=== PATIENT | male | born 1945 | race Caucasian/White ===

== ENCOUNTER 2020-11-25 16:38 | Inpatient (IN) | payer MEDICARE, OTHER ==
[~2020-11-25] VITALS: Ht 167.6 cm; Wt 65.3 kg
--- NOTE | 2020-11-25 17:00 | NUR ---
The patient bibpa, from snf, sent by PMD d/t cough, congestion, and tachycardia. GT present. The patient obtunded. Respiration regular and unlabored. Attached to the monitor. Will continue to monitor the patient.
[2020-11-25 17:42] LABS: BASOPHILS # (AUTO) 0.1 /CMM (0.0-0.2); BASOPHILS % (AUTO) 0.5 % (0.0-2.0); EOSINOPHILS % (AUTO) 1.6 % (0.0-6.0); HEMATOCRIT 40 % (39-51); HEMOGLOBIN 13.1 g/dL (13.5-17.5); LYMPHOCYTES # (AUTO) 1.3 /CMM (0.8-4.8); LYMPHOCYTES % (AUTO) 11.8 % (20.0-44.0); MEAN CORPUSCULAR HGB CONC 33 g/dl (31.0-36.0); MEAN CORPUSCULAR VOLUME 83 fL (80-96); MONOCYTES # (AUTO) 0.8 /CMM (0.1-1.30); NEUTROPHILS # (AUTO) 8.8 /CMM (1.8-8.9); NEUTROPHILS % (AUTO) 79.1 % (43.0-81.0); PLATELET COUNT (AUTO) 250 /CMM (150-450); WHITE BLOOD COUNT (AUTO) 11.1 K/uL (4.3-11.0)
[2020-11-25 17:44] LABS: BILIRUBIN,URINE Negative (NEGATIVE); COLOR,URINE YELLOW (YELLOW); LEUKOCYTE ESTERASE ,URINE Negative (NEGATIVE); NITRITE, URINE Negative (NEGATIVE); PH,URINE 6.5 (5.0-8.0); PROTEIN,URINE >=300 mg/dl (NEGATIVE); UGLUCOSE Negative (NEGATIVE); UROBILINOGEN,URINE 0.2 EU/dL (0.2)
[2020-11-25 17:50] LABS: BACTERIA,URINE Rare /HPF (None Seen); SQUAMOUS EPITHELIAL CELL,UR Few /HPF (None Seen); WBC,URINE NONE SEEN /HPF (0-3)
[2020-11-25 17:52] LABS: CALCIUM, SERUM 9.9 mg/dL (8.5-10.1); CARBON DIOXIDE 30 mmol/L (21-32); CHLORIDE 98 mmol/L (98-107); CREATININE 0.8 mg/dL (0.6-1.3); GLUCOSE 159 mg/dL (74-106); SODIUM SERUM 134 mmol/L (136-145); UREA NITROGEN, BLOOD 20 mg/dL (7-18)
[2020-11-25 17:58] LABS: ALANINE AMINOTRANSFERASE 23 U/L (12-78); ALBUMIN 2.8 g/dL (3.4-5.0); ALKALINE PHOSPHATASE 90 U/L (46-116); ASPARTATE AMINOTRANSFERASE 29 U/L (15-37); BILIRUBIN,DIRECT 0.1 mg/dL (0.0-0.2); BILIRUBIN,TOTAL 0.5 mg/dL (0.2-1.0); TOTAL PROTEIN, SERUM 7.8 g/dL (6.4-8.2)
[2020-11-25] MEDS ORDERED: INSU100V27 SQ (18:05)
[2020-11-25] MEDS ORDERED: ACET-868 GT (18:05)
[2020-11-25] MEDS ORDERED: GABA-532 GT (18:05)
[2020-11-25] MEDS ORDERED: OMEG1600 GT (18:05)
[2020-11-25] MEDS ORDERED: MAGN400O6 GT (18:05)
[2020-11-25] MEDS ORDERED: IPRA3AMP23 IH ×2 (18:05)
[2020-11-25] MEDS ORDERED: ALLO100T GT (18:05)
[2020-11-25] MEDS ORDERED: MAGN400T26 GT (18:05)
[2020-11-25] MEDS ORDERED: FERR300L GT (18:05)
[2020-11-25] MEDS ORDERED: ASCO-352 GT (18:05)
[2020-11-25] MEDS ORDERED: POTA20PA3 GT (18:05)
[2020-11-25] MEDS ORDERED: ONDA4TAB5 GT (18:05)
[2020-11-25] MEDS ORDERED: NUT.237L30 GT (18:05)
[2020-11-25] MEDS ORDERED: ESCI10TA GT (18:05)
[2020-11-25] MEDS ORDERED: DOCU50LI GT (18:05)
[2020-11-25] MEDS ORDERED: LANS30CA54 GT (18:05)
[2020-11-25] MEDS ORDERED: DONE10TA11 GT (18:05)
--- NOTE | 2020-11-25 18:27 | NUR ---
DR. METZ SPEAKING WITH DR. DUDLEY
[2020-11-25 21:00] VITALS: BP 151/91
--- NOTE | 2020-11-25 21:03 | NUR ---
REPORT GIVEN TO RODRIGUEZ CELESTIN FOR PANTERA. PT TRANSFERED PER ACLS PROTOCOL.
--- NOTE | 2020-11-25 21:05 | NUR ---
VP [employer] NOTES, RECEIVED PATIENT FORM ER DEPARTMENT VIA AISHWARYA ACCOMPANIED BY 2 NURSE, UNDER MEDICAL SERVICES OF DR ISAÍAS POSEY, WILL CONTAC MD FOR ADMITTING ORDER, PATIENT NONVERBAL, UNABLE TO FOLLOW COMMANDS, BREATHING EVEN AND UNLABORED AT 3LPM VIA NC WITH O2 SAT LEVEL 99%, NO S/S OF SOB/ACUTE DISTRESS, CONGESTED, ATTACHED TO TELE MONITOR AND NOTED SINUS TACHY, AFEBRILE, GT IN PLACED, F/C IN PLACED DRAINING LEAR YELLOW URINE BY GRAVITY, MIDLINE IN BRANT PATENT AND INTACT, BED BATH GIVEN UPON ADMISSION, NO OPEN WOUNDS NOTED, WILL CONTINUE TO MONITOR AND F/U WITH MD FOR ORDERS, S/R OF BED UPX2, CALL LIGHT W/I REACH.
--- NOTE | 2020-11-25 21:05 | NUR ---
STAFF DEVELOPMENT COORDINATOR RN NOTES, RECEIVED PATIENT FORM ER DEPARTMENT VIA AISHWARYA ACCOMPANIED BY 2 NURSE, UNDER MEDICAL SERVICES OF DR SABINO POSEY, JIMMY MOCTEZUMA MD FOR ADMITTING ORDER, PATIENT ONVERBAL, UNABLE TO FOLLOW COMANDS, BREWATHIGN EVEN AND UNLABOTED AT 3LPM VIA NC WITH O2 SAT LEVEL 99%, NO S/S OF SOB/ACUSTE DISTRESS, CONGESTED, ATTACHED TO TELE MONOI
--- NOTE | 2020-11-25 21:25 | NUR ---
2124 LEFT MESSAGE TO FIELD OPERATIONS FARM MANAGER VOICEMAIL OF DR. TATY METZ REGARDING PATIENT'S ADMISSION, AWAITING CALL BACK.
--- NOTE | 2020-11-25 22:05 | NUR ---
[address] METZ AGAIN FOR ORDERS, CALL DIRECTED TO DR. MADISON METZ CELL PHONE, SPOKE WITH HIM REGARDING ADMISSION ORDERS. ORDERS OBTAINED, NOTED AND CARRIED OUT.
--- NOTE | 2020-11-25 22:10 | NUR ---
Patient resides at [facility] [phone] on 7days bed hold. He is wheelchair dependent,requires mod-max assist with adl's. Current dc plan is to return to SNF. Addendum: 11/25/20 at 2210 by MELLISSA MAHARAJ RN Amended: Links added.
[2020-11-25] MEDS ORDERED: ENOXAPARIN SODIUM 40 MG/0.4 ML DISP.SYRIN SQ SCH (22:30)
[2020-11-25] MEDS ORDERED: INSULIN REGULAR, HUMAN 100 UNIT/ML 3 ML VIAL SQ PRN (22:30)
[2020-11-25] MEDS ORDERED: ONDANSETRON 4 MG TAB.RAPDIS GT PRN (22:30)
[2020-11-25] MEDS ORDERED: MAGNESIUM HYDROXIDE 30 ML UDC PO PRN (22:30)
[2020-11-25] MEDS ORDERED: DEXTROSE 50%-WATER 50 ML DISP.SYRIN IV PRN (22:30)
[2020-11-25] MEDS ORDERED: ACETAMINOPHEN 650 MG/20.3 ML UDC GT PRN (22:30)
[2020-11-25] MEDS ORDERED: INSULIN LISPRO/ASPART 100 UNIT/ML CARTRIDGE SQ ONE ×2 (22:30→23:00)
[2020-11-25] MEDS ORDERED: GLUCERNA 1.2 1,000 ML BOTTLE NG PRN ×2 (22:30)
[2020-11-25] MEDS: FUROSEMIDE 40 MG/4 ML VIAL IV SCH (23:00)
[2020-11-25] MEDS ORDERED: IPRATROPIUM/ALBUTEROL INHALER IH PRN (23:00)
--- NOTE | 2020-11-25 23:00 | NUR ---
RN NOTES, PER DR SHELLEY METZ TO START LOVENOX SQ TOMORROW.
[2020-11-26] VITALS: BP 142/94
[2020-11-26] MEDS ORDERED: BLOOD SUGAR DIAGNOSTIC 1 EACH STRIP IN SCH
[2020-11-26] MEDS ORDERED: DEXTROSE 50%-WATER 50 ML DISP.SYRIN IV PRN (01:00)
[2020-11-26] MEDS ORDERED: INSULIN LISPRO/ASPART 100 UNIT/ML CARTRIDGE SQ ONE (01:18)
[2020-11-26] MEDS: INSULIN ASPART/LISPRO 100 UNIT/ML CARTRIDGE SQ PRN ×5 (01:22→23:45)
[2020-11-26 04:00] VITALS: BP 117/96
[2020-11-26] MEDS: BLOOD SUGAR DIAGNOSTIC 1 EACH STRIP IN SCH ×4 (06:38→23:29)
--- NOTE | 2020-11-26 07:33 | NUR ---
RN NOTES, NO SIGNIFICANT CHANGE IN CONDITION, ENDORSED TO DAY SHIFT NURSE FOR CONTINUATION OF CARE.
[2020-11-26] MEDS ORDERED: IPRATROPIUM/ALBUTEROL INHALER IH SCH (07:35)
--- NOTE | 2020-11-26 07:45 | NUR ---
RN NOTE PATIENT IS IN BED WITH HOB AT SEMI FOWLERS POSITION. PATIENT IS ON 2L NC WITH NO SIGNS OF LABORED BREATHING. PATIENT IS OBTUNDED. GTUBE IS IN PLACE. DURHAM CATHETER IS IN PLACE. BRANT 18 IS PATENT AND INTACT. BED IS LOCKED IN THE LOWEST POSITION, 3 GUARD RAILS RAISED, CALL PARK WITHIN REACH, AND ALL HOSPITAL SAFETY PRECAUTIONS ARE BEING FOLLOWED. WILL CONTINUE TO MONITOR THROUGHOUT SHIFT.
[2020-11-26] MEDS ORDERED: MAGNESIUM HYDROXIDE 30 ML UDC GT PRN (08:00)
[2020-11-26] MEDS ORDERED: DOCUSATE SODIUM LIQ 100 MG/10 ML UDC GT PRN (08:00)
[2020-11-26] MEDS ORDERED: MISCELLANEOUS MED 1 EA EA XX ONE ×2 (08:00)
[2020-11-26] MEDS ORDERED: ONDANSETRON 4 MG TAB.RAPDIS GT PRN (08:00)
[2020-11-26] MEDS ORDERED: INSULIN ASPART/LISPRO 100 UNIT/ML CARTRIDGE SQ PRN (08:00)
[2020-11-26] MEDS ORDERED: GLUCERNA 1.2 1,000 ML BOTTLE NG PRN (08:00)
[2020-11-26] MEDS ORDERED: ACETAMINOPHEN 325 MG TABLET PO PRN (08:00)
[2020-11-26] MEDS ORDERED: ESCITALOPRAM OXALATE (10 MG) 10 MG TABLET GT SCH (09:00)
[2020-11-26] MEDS ORDERED: ENOXAPARIN SODIUM 40 MG/0.4 ML DISP.SYRIN SQ SCH (09:00)
[2020-11-26] MEDS ORDERED: POTASSIUM CHLORIDE 20 MEQ TAB.PRT.SR PO SCH (09:00)
[2020-11-26] MEDS ORDERED: ASCORBIC ACID 500 MG TABLET GT SCH (09:00)
[2020-11-26] MEDS ORDERED: MAGNESIUM OXIDE 400 MG TABLET GT SCH (09:00)
[2020-11-26] MEDS ORDERED: POTASSIUM CHLORIDE 20 MEQ POWDER PACKET GT SCH (09:00)
[2020-11-26] MEDS ORDERED: GABAPENTIN 300 MG CAPSULE GT SCH (09:00)
[2020-11-26] MEDS ORDERED: ALLOPURINOL 100 MG TABLET GT SCH (09:00)
[2020-11-26] MEDS ORDERED: FERROUS SULFATE UDC 300 MG/5 ML UDC GT SCH (09:00)
[2020-11-26] MEDS: ALLOPURINOL 100 MG TABLET GT SCH (09:13)
[2020-11-26] MEDS: FERROUS SULFATE UDC 300 MG/5 ML UDC GT SCH (09:13)
[2020-11-26] MEDS: DOCUSATE SODIUM 100 MG CAPSULE PO SCH (09:13)
[2020-11-26] MEDS: MAGNESIUM OXIDE 400 MG TABLET GT SCH (09:13)
[2020-11-26] MEDS: PANTOPRAZOLE 40 MG TABLET.DR PO SCH (09:13)
[2020-11-26] MEDS: ASCORBIC ACID 500 MG TABLET GT SCH (09:13)
[2020-11-26] MEDS: FUROSEMIDE 40 MG/4 ML VIAL IV SCH (09:14)
[2020-11-26] MEDS: ESCITALOPRAM OXALATE (10 MG) 10 MG TABLET GT SCH (09:14)
[2020-11-26] MEDS: CARVEDILOL 3.125 MG TABLET PO SCH ×2 (11:59→16:29)
[2020-11-26] MEDS: methylPREDNISolone SOD SUCC 125 MG/2ML VIAL IV SCH ×2 (12:02→22:14)
[2020-11-26] MEDS: IPRATROPIUM NEB FS 0.5 MG/2.5 ML AMPUL.NEB NEB SCH ×3 (15:30→23:30)
[2020-11-26] MEDS: ALBUTEROL HALF STRENGTH 1.25 MG/3 ML VIAL.NEB NEB SCH ×3 (15:30→23:30)
--- NOTE | 2020-11-26 15:41 | NUR ---
RT HHN tx not given at this time due to pending COVID results and risk for aerosolization. No SOB or respiratory distress noted at this time.
[2020-11-26 16:04] LABS: ABG BASE EXCESS 5.9 mmol/L; ABG OXYGEN SATURATION 96.8 % (92.0-98.5); ABG PCO2 46.7 mmHg (35.0-45.0); ABG PH 7.441 (7.350-7.450); ABG PO2 89.7 mmHg (75.0-100.0); AaDO2 112.8 mmHg; MetHb 0.3 % (0.0-1.5); O2Hb 95.5 % (94.0-97.0); SITE, ABG Right Radial
[2020-11-26] MEDS: POTASSIUM CHLORIDE 20 MEQ POWDER PACKET GT SCH (16:28)
--- NOTE | 2020-11-26 16:42 | NUR ---
RN NOTE CONSENT OBTAINED FOR THORACENTESIS OF RIGHT LUNG.
[2020-11-26] MEDS: INSULIN NPH, HUMAN ISOPHANE 100 UNIT/ML VIAL SQ SCH (17:38)
--- NOTE | 2020-11-26 18:48 | NUR ---
RN NOTE PATIENT IS IN BED WITH HOB AT SEMI FOWLERS POSITION. PATIENT IS ON 2L NC WITH NO SIGNS OF LABORED BREATHING. PATIENT IS OBTUNDED. GTUBE IS IN PLACE. DURHAM CATHETER IS IN PLACE. BRANT 18 IS PATENT AND INTACT. BED IS LOCKED IN THE LOWEST POSITION, 3 GUARD RAILS RAISED, CALL PARK WITHIN REACH, AND ALL HOSPITAL SAFETY PRECAUTIONS ARE BEING FOLLOWED. ALL DUE MEDS GIVEN AND PATIENT REMAINED STABLE THROUGHOUT SHIFT. WILL ENDORSE TO REGISTERED TRAVEL NURSE RN.
--- NOTE | 2020-11-26 19:35 | NUR ---
TELE/RN OPENING NOTE RECEIVED PATIENT RESTING IN BED. NON-VERBAL AT BASELINE. NO S/SX OF PAIN NOTED AT THIS TIME. CONTINUES ON 2L O2 VIA NC WITH NO S/SX OF RESPIRATORY DISTRESS NOTED. TELE MONITOR READING ST 106. IV ACCESS TO RIGHT UPPER ARM ##18G INTACT, PATENT AND SALINE FLUSHED. CONTINUES ON GLUCERNA 1.2 @ 70ML/HR. NO S/SX OF RESIDUAL NOTED AT THIS TIME. DURHAM CATHETER IN PLACE DRAINING CLEAR, YELLOW URINE. FREQUENT SAFETY CHECKS MADE. ASPIRATION, FALL AND SAFETY PRECAUTIONS MAINTAINED. WILL CONTINUE TO MONITOR.
--- NOTE | 2020-11-26 20:19 | NUR ---
RT NOTE TX NOT GIVEN DUE TO PENDING COVID RESULTS. NO DISTRESS NOTED AT THIS TIME. PT RECEIVED ON 4LPM NASAL CANNULA. RN AWARE. Addendum: 11/26/20 at 2020 by ABIGAIL COSTA RT Amended: Links added.
[2020-11-26] MEDS ORDERED: DONEPEZIL 5 MG TABLET GT SCH (22:00)
[2020-11-26] MEDS: GABAPENTIN 100 MG CAPSULE GT SCH (22:14)
[2020-11-26] MEDS: DONEPEZIL 5 MG TABLET GT SCH (22:14)
--- NOTE | 2020-11-26 23:49 | NUR ---
TELE/RN NOTE PATIENTS BLOOD GLUCOSE LEVEL IS 185. ADMINISTERED 3U HUMALOG PER INSULIN SS ORDER. CONTINUES ON GLUCERNA 1.2. WILL CONTINUE TO MONITOR.
[2020-11-27] MEDS: ALBUTEROL HALF STRENGTH 1.25 MG/3 ML VIAL.NEB NEB SCH ×6 (03:30→23:03)
[2020-11-27] MEDS: IPRATROPIUM NEB FS 0.5 MG/2.5 ML AMPUL.NEB NEB SCH ×6 (03:30→23:01)
[2020-11-27] MEDS: methylPREDNISolone SOD SUCC 125 MG/2ML VIAL IV SCH (04:50)
[2020-11-27] MEDS: GLUCERNA 1.2 1,000 ML BOTTLE NG PRN (05:59)
[2020-11-27] MEDS: BLOOD SUGAR DIAGNOSTIC 1 EACH STRIP IN SCH ×3 (05:59→17:01)
[2020-11-27] MEDS: INSULIN ASPART/LISPRO 100 UNIT/ML CARTRIDGE SQ PRN ×3 (06:30→16:48)
--- NOTE | 2020-11-27 06:30 | NUR ---
TELE/RN CLOSING NOTE PATIENT CURRENTLY RESTING IN BED. NON-VERBAL AT BASELINE. NO S/SX OF PAIN NOTED AT THIS TIME. CONTINUES ON 2L O2 VIA NC WITH NO S/SX OF RESPIRATORY DISTRESS NOTED. TELE MONITOR READING ST 106. IV ACCESS TO RIGHT UPPER ARM #18G INTACT, PATENT AND SALINE FLUSHED. CONTINUES ON GLUCERNA 1.2 @ 70ML/HR. NO S/SX OF RESIDUAL NOTED AT THIS TIME. DURHAM CATHETER IN PLACE DRAINING CLEAR, YELLOW URINE. BLOOD GLUCOSE THIS AM IS 197 - ADMINISTERED 3U HUMALOG INSULIN SS PER MD ORDER. FREQUENT SAFETY CHECKS MADE. ASPIRATION, FALL AND SAFETY PRECAUTIONS MAINTAINED. WILL ENDORSE PLAN OF CARE TO ONCOMING SHIFT.
[2020-11-27 07:13] LABS: BASOPHILS % (AUTO) 0.2 % (0.0-2.0); EOSINOPHILS % (AUTO) 0.1 % (0.0-6.0); HEMATOCRIT 40 % (39-51); LYMPHOCYTES # (AUTO) 1.2 /CMM (0.8-4.8); LYMPHOCYTES % (AUTO) 11.3 % (20.0-44.0); MEAN CORPUSCULAR HGB CONC 33 g/dl (31.0-36.0); MEAN CORPUSCULAR VOLUME 85 fL (80-96); MONOCYTES # (AUTO) 0.2 /CMM (0.1-1.30); MONOCYTES % (AUTO) 2.3 % (2.0-12.0); NEUTROPHILS # (AUTO) 8.9 /CMM (1.8-8.9); NEUTROPHILS % (AUTO) 86.1 % (43.0-81.0); PLATELET COUNT (AUTO) 285 /CMM (150-450); RED BLOOD CELL COUNT(AUTO) 4.71 MIL/uL (4.5-6.0); WHITE BLOOD COUNT (AUTO) 10.4 K/uL (4.3-11.0)
--- NOTE | 2020-11-27 07:30 | NUR ---
RN NOTE PATIENT IS IN BED WITH HOB AT SEMI FOWLERS POSITION. PATIENT IS ON 4L NC WITH NO SIGNS OF LABORED BREATHING. PATIENT IS OBTUNDED. DURHAM CATHETER IS IN PLACE. GTUBE IN PLACE. BRANT 18G IS PATENT AND INTACT. BED IS LOCKED IN THE LOWEST POSITION, 3 GUARD RAILS RAISED, CALL PARK WITHIN REACH, AND ALL HOSPITAL SAFETY PRECAUTIONS ARE BEING FOLLOWED. WILL CONTINUE TO MONITOR THROUGHOUT SHIFT.
[2020-11-27 07:57] LABS: CALCIUM, SERUM 10.1 mg/dL (8.5-10.1); POTASSIUM 5.2 mmol/L (3.5-5.1)
[2020-11-27] MEDS: FUROSEMIDE 40 MG/4 ML VIAL IV SCH (08:19)
[2020-11-27] MEDS: POTASSIUM CHLORIDE 20 MEQ POWDER PACKET GT SCH (08:19)
[2020-11-27] MEDS: ASCORBIC ACID 500 MG TABLET GT SCH (08:20)
[2020-11-27] MEDS: CARVEDILOL 3.125 MG TABLET PO SCH ×2 (08:20→16:46)
[2020-11-27] MEDS: FERROUS SULFATE UDC 300 MG/5 ML UDC GT SCH (08:21)
[2020-11-27] MEDS: ESCITALOPRAM OXALATE (10 MG) 10 MG TABLET GT SCH (08:21)
[2020-11-27] MEDS: DOCUSATE SODIUM 100 MG CAPSULE PO SCH (08:21)
[2020-11-27] MEDS: MAGNESIUM OXIDE 400 MG TABLET GT SCH (08:21)
[2020-11-27] MEDS: PANTOPRAZOLE 40 MG TABLET.DR PO SCH (08:21)
[2020-11-27] MEDS: ALLOPURINOL 100 MG TABLET GT SCH (08:21)
[2020-11-27] MEDS: INSULIN NPH, HUMAN ISOPHANE 100 UNIT/ML VIAL SQ SCH ×2 (08:44→16:47)
[2020-11-27 12:00] VITALS: BP 117/78
--- NOTE | 2020-11-27 18:57 | NUR ---
RN NOTE PATIENT IS IN BED WITH HOB AT SEMI FOWLERS POSITION. PATIENT IS ON 3L NC WITH NO SIGNS OF LABORED BREATHING. PATIENT IS OBTUNDED. DURHAM CATHETER IS IN PLACE. GTUBE IN PLACE. BRANT 18G IS PATENT AND INTACT. BED IS LOCKED IN THE LOWEST POSITION, 3 GUARD RAILS RAISED, CALL PARK WITHIN REACH, AND ALL HOSPITAL SAFETY PRECAUTIONS ARE BEING FOLLOWED. ALL DUE MEDS GIVEN AND PATIENT REMAINED STABLE THROUGHOUT SHIFT. WILL ENDORSE TO PM TECHNICIAN RN.
--- NOTE | 2020-11-27 19:00 | NUR ---
RN NOTE RECEIVED PATIENT IN BED, LETHARGIC, IN NO S/SX OF ACUTE DISTRESS AT THIS TIME, BREATHING IS EVEN AND UNLABORED, PATIENT IS ON 3 L OF OXYGEN VIA NC; TOLERATING WELL, SATURATION AT 100%, SR ON THE MONITOR, HR IS 88. NOTED IV SITE AT BRANT 18G, PATENT AND FLUSHING WELL, NO S/S OF INFECTION OR INFILTRATION. DURHAM CATHETER CONNECTED TO URINE BAG IN PLACE, DRAINING TO A CLEAR YELLOW OUTPUT. SAFETY MEASURES HAVE BEEN PROVIDED AND IMPLEMENTED. PATIENT BED ALARM IS ON. HEAD OF BED ELEVATED. BED IS LOCKED, IN LOWEST POSITION AND SIDE RAILS UP. CALL LIGHT WITHIN REACH OF THE PATIENT. WILL CONTINUE TO MONITOR AND REASSESS FOR ANY CHANGES.
[2020-11-27 20:00] VITALS: BP 110/69
[2020-11-27] MEDS: GABAPENTIN 100 MG CAPSULE GT SCH (21:12)
[2020-11-27] MEDS: methylPREDNISolone SOD SUCC 40 MG/ML VIAL IV SCH (21:12)
[2020-11-27] MEDS: DONEPEZIL 5 MG TABLET GT SCH (21:12)
[2020-11-28] VITALS: BP 116/67
[2020-11-28] MEDS: BLOOD SUGAR DIAGNOSTIC 1 EACH STRIP IN SCH ×5 (00:02→23:49)
[2020-11-28] MEDS: INSULIN ASPART/LISPRO 100 UNIT/ML CARTRIDGE SQ PRN ×4 (00:06→23:50)
[2020-11-28 04:00] VITALS: BP 113/70
[2020-11-28] MEDS: ALBUTEROL HALF STRENGTH 1.25 MG/3 ML VIAL.NEB NEB SCH ×6 (04:31→23:23)
[2020-11-28] MEDS: IPRATROPIUM NEB FS 0.5 MG/2.5 ML AMPUL.NEB NEB SCH ×6 (04:31→23:23)
[2020-11-28 06:49] LABS: BASOPHILS % (AUTO) 0.2 % (0.0-2.0); HEMATOCRIT 39 % (39-51); HEMOGLOBIN 12.3 g/dL (13.5-17.5); LYMPHOCYTES # (AUTO) 0.9 /CMM (0.8-4.8); MEAN CORPUSCULAR HGB CONC 32 g/dl (31.0-36.0); MEAN CORPUSCULAR VOLUME 86 fL (80-96); MONOCYTES # (AUTO) 0.3 /CMM (0.1-1.30); MONOCYTES % (AUTO) 2.5 % (2.0-12.0); NEUTROPHILS # (AUTO) 11.3 /CMM (1.8-8.9); NEUTROPHILS % (AUTO) 90.3 % (43.0-81.0); PLATELET COUNT (AUTO) 301 /CMM (150-450); RED BLOOD CELL COUNT(AUTO) 4.51 MIL/uL (4.5-6.0); WHITE BLOOD COUNT (AUTO) 12.5 K/uL (4.3-11.0)
[2020-11-28] MEDS: GLUCERNA 1.2 1,000 ML BOTTLE NG PRN (07:34)
[2020-11-28 07:36] LABS: CALCIUM, SERUM 9.7 mg/dL (8.5-10.1); POTASSIUM 4.9 mmol/L (3.5-5.1)
--- NOTE | 2020-11-28 07:43 | NUR ---
RN OPENING NOTE RECEIVED PATIENT IN BED, AWAKE AND ABLE TO RESPONDS PHYSICAL STIMULI. SKIN IS WARM TO TOUCH KEEP CLEAN/DRY, PATIENT N . RESPIRATORY EVEN AND UNLABORED WITH OXYGEN AT 2LPM VIA NC, NO DISTRESS OBSERVED. KEPT ELEVATED HOB FOR ENSURE AIRWAY AND ASPIRATION PRECAUTION, ALSO LOWEST BED POSITION FOE SAFETY. CALL LIGHT WITHIN REACH, WILL CONTINUE TO MONITOR. Addendum: 11/28/20 at 0746 by GREGORIA COLON RN ERROR
--- NOTE | 2020-11-28 07:46 | NUR ---
RN OPENING NOTE RECEIVED PATIENT IN BED, AWAKE AND ABLE TO RESPONDS PHYSICAL STIMULI. SKIN IS WARM TO TOUCH KEEP CLEAN/DRY, INTACT IV SITE, PATIENT IN GTUBE AND RUNNING GLUCERNA 1.2 AT 70 ML. RESPIRATORY EVEN AND UNLABORED WITH OXYGEN AT 2LPM VIA NC, NO DISTRESS OBSERVED. KEPT ELEVATED HOB FOR ENSURE AIRWAY AND ASPIRATION PRECAUTION, ALSO LOWEST BED POSITION FOE SAFETY. CALL LIGHT WITHIN REACH, WILL CONTINUE TO MONITOR.
--- NOTE | 2020-11-28 07:55 | NUR ---
received on 2 lpm o2 flow with 96% spo2. no increase WOB noted. Addendum: 11/28/20 at 0755 by ZEUS YADAV RT Amended: Links added.
[2020-11-28 08:00] VITALS: BP 107/74
[2020-11-28] MEDS: CARVEDILOL 3.125 MG TABLET PO SCH ×2 (09:00→16:49)
[2020-11-28] MEDS: ALLOPURINOL 100 MG TABLET GT SCH (09:07)
[2020-11-28] MEDS: DOCUSATE SODIUM 100 MG CAPSULE PO SCH (09:07)
[2020-11-28] MEDS: PANTOPRAZOLE 40 MG TABLET.DR PO SCH (09:07)
[2020-11-28] MEDS: ASCORBIC ACID 500 MG TABLET GT SCH (09:07)
[2020-11-28] MEDS: MAGNESIUM OXIDE 400 MG TABLET GT SCH (09:07)
[2020-11-28] MEDS: ESCITALOPRAM OXALATE (10 MG) 10 MG TABLET GT SCH (09:07)
[2020-11-28] MEDS: FERROUS SULFATE UDC 300 MG/5 ML UDC GT SCH (09:07)
[2020-11-28] MEDS: methylPREDNISolone SOD SUCC 40 MG/ML VIAL IV SCH ×2 (09:07→21:33)
[2020-11-28] MEDS: INSULIN NPH, HUMAN ISOPHANE 100 UNIT/ML VIAL SQ SCH ×2 (09:11→16:48)
--- NOTE | 2020-11-28 09:19 | NUR ---
WOUND CARE CONSULT: PT PRESENTS WITH SCARRING TO BILATERAL FEET AND TO SACRAL AREA, PRESENT ON ADMISSION. RECOMMENDATIONS MADE FOR SKIN PROTECTION. DISCUSSED WITH NURSING STAFF. PT IS ON FAY ISOFLEX LOW AIRLOSS BED. MD IN AGREEMENT WITH PLAN OF CARE.
[2020-11-28] MEDS ORDERED: Z GUARD REMEDY 2 OZ OINT TP PRN (09:30)
[2020-11-28] MEDS: Z GUARD REMEDY 2 OZ OINT TP SCH (10:59)
[2020-11-28 12:00] VITALS: BP 128/76
[2020-11-28] MEDS: ENOXAPARIN SODIUM 40 MG/0.4 ML DISP.SYRIN SQ SCH (14:14)
[2020-11-28 16:00] VITALS: BP 106/64
--- NOTE | 2020-11-28 16:49 | NUR ---
BP-106/64, WILL HOLD COREG.
--- NOTE | 2020-11-28 18:24 | NUR ---
RN CLOSING NOTE PATIENT RESTING IN BED, REMAINS A O X4, DOES NO APPEARS DISTRESS OR DISCOMFORT. SKIN IS WARM TO TOUCH, KEEP CLEAN/DRY. RESPIRATORY EVEN AND UNLABORED IN ROOM AIR, O2SAT 99%. KEPT ELEVATED HOB FOR ENSURE AIRWAY AND ASPIRATION PRECAUTION, ALSO LOWEST BED POSITION FOR SAFETY. CALL LIGHT WITHIN REACH, WILL ENDORSE MID LEVEL BUSINESS ANALYST.
--- NOTE | 2020-11-28 19:00 | NUR ---
RN NOTE RECEIVED PATIENT IN BED, OPENS EYES, DOES NOT OBEY COMMANDS, IN NO S/SX OF ACUTE DISTRESS AT THIS TIME, BREATHING IS EVEN AND UNLABORED, PATIENT IS ON 2 L OF OXYGEN VIA NC; TOLERATING WELL, SATURATION AT 98%, ST ON THE MONITOR, HR IS 102. NOTED IV SITE AT BRANT 18G, PATENT AND FLUSHING WELL, NO S/S OF INFECTION OR INFILTRATION. DURHAM CATHETER CONNECTED TO URINE BAG IN PLACE, DRAINING TO A CLEAR YELLOW OUTPUT. SAFETY MEASURES HAVE BEEN PROVIDED AND IMPLEMENTED. PATIENT BED ALARM IS ON. HEAD OF BED ELEVATED. BED IS LOCKED, IN LOWEST POSITION AND SIDE RAILS UP. CALL LIGHT WITHIN REACH OF THE PATIENT. WILL CONTINUE TO MONITOR AND REASSESS FOR ANY CHANGES.
[2020-11-28 20:00] VITALS: BP 119/62
[2020-11-28] MEDS: GABAPENTIN 100 MG CAPSULE GT SCH (21:33)
[2020-11-28] MEDS: DONEPEZIL 5 MG TABLET GT SCH (21:33)
[2020-11-29] VITALS: BP 107/69
[2020-11-29] MEDS: ALBUTEROL HALF STRENGTH 1.25 MG/3 ML VIAL.NEB NEB SCH ×4 (03:47→15:25)
[2020-11-29] MEDS: IPRATROPIUM NEB FS 0.5 MG/2.5 ML AMPUL.NEB NEB SCH ×4 (03:47→15:25)
[2020-11-29 04:00] VITALS: BP 129/83
[2020-11-29] MEDS: BLOOD SUGAR DIAGNOSTIC 1 EACH STRIP IN SCH ×2 (05:53→12:36)
[2020-11-29 05:58] LABS: HEMATOCRIT 38 % (39-51); HEMOGLOBIN 12.1 g/dL (13.5-17.5); LYMPHOCYTES # (AUTO) 0.9 /CMM (0.8-4.8); LYMPHOCYTES % (AUTO) 10.3 % (20.0-44.0); MEAN CORPUSCULAR HGB CONC 32 g/dl (31.0-36.0); MEAN CORPUSCULAR VOLUME 86 fL (80-96); MONOCYTES # (AUTO) 0.3 /CMM (0.1-1.30); NEUTROPHILS # (AUTO) 7.4 /CMM (1.8-8.9); NEUTROPHILS % (AUTO) 85.7 % (43.0-81.0); PLATELET COUNT (AUTO) 278 /CMM (150-450); RED BLOOD CELL COUNT(AUTO) 4.34 MIL/uL (4.5-6.0); WHITE BLOOD COUNT (AUTO) 8.7 K/uL (4.3-11.0)
[2020-11-29] MEDS: INSULIN ASPART/LISPRO 100 UNIT/ML CARTRIDGE SQ PRN ×2 (06:00→12:56)
[2020-11-29 06:31] LABS: CALCIUM, SERUM 9.5 mg/dL (8.5-10.1); CREATININE 0.9 mg/dL (0.6-1.3); POTASSIUM 4.3 mmol/L (3.5-5.1)
--- NOTE | 2020-11-29 07:52 | NUR ---
RN OPENING NOTES Patient is responsive to verbal and physical stimuli. Patient is on 2 liters 02 via n/c with 02 sat of 98%. HOB kept elevated. G tube feeding running well, right upper arm midline noted. Bed is in lowest and locked position. Call light with in reach. Will continue to monitor.
[2020-11-29 08:00] VITALS: BP 127/76
[2020-11-29] MEDS: Z GUARD REMEDY 2 OZ OINT TP SCH (09:00)
[2020-11-29] MEDS: MAGNESIUM OXIDE 400 MG TABLET GT SCH (09:11)
[2020-11-29] MEDS: methylPREDNISolone SOD SUCC 40 MG/ML VIAL IV SCH (09:11)
[2020-11-29] MEDS: ALLOPURINOL 100 MG TABLET GT SCH (09:12)
[2020-11-29] MEDS: PANTOPRAZOLE 40 MG TABLET.DR PO SCH (09:12)
[2020-11-29] MEDS: FERROUS SULFATE UDC 300 MG/5 ML UDC GT SCH (09:12)
[2020-11-29] MEDS: ASCORBIC ACID 500 MG TABLET GT SCH (09:12)
[2020-11-29] MEDS: ESCITALOPRAM OXALATE (10 MG) 10 MG TABLET GT SCH (09:13)
[2020-11-29] MEDS: CARVEDILOL 3.125 MG TABLET PO SCH (09:13)
[2020-11-29] MEDS: DOCUSATE SODIUM 100 MG CAPSULE PO SCH (09:13)
[2020-11-29] MEDS: ENOXAPARIN SODIUM 40 MG/0.4 ML DISP.SYRIN SQ SCH (09:21)
[2020-11-29] MEDS: INSULIN NPH, HUMAN ISOPHANE 100 UNIT/ML VIAL SQ SCH (09:34)
[2020-11-29 12:00] VITALS: BP 127/76
[2020-11-29] MEDS: GLUCERNA 1.2 1,000 ML BOTTLE NG PRN (12:06)
--- NOTE | 2020-11-29 15:59 | NUR ---
DISCHARGE NOTES Patient is alert and responsive to verbal and physical stimuli., On 02 2 liters via n/c with 02 sat of 100%. No c/o pain or discomfort.Report given to KENDELL CELESTIN. Per RN to leave midline in the patient and the facility staff will remove it. Patient noted with quiñones cath intact and hanging to gravity with clear yellow urine. G-tube intact and placement noted.
[2020-11-30] MEDS ORDERED: methylPREDNISolone SOD SUCC 40 MG/ML VIAL IV SCH (09:00)
== END 2020-11-29 16:01 | DRG 291 ==
LOC: ER 16:49 → TELE1 19:55
PROVIDERS: ADMIT Internal Medicine; ATTEND Internal Medicine
DX: I11.0 Hypertensive heart disease with heart failure (principal); J15.9 Unspecified bacterial pneumonia; R53.2 Functional quadriplegia; I50.31 Acute diastolic (congestive) heart failure; J96.00 Acute respiratory failure, unspecified whether with hypoxia or hypercapnia; J90 Pleural effusion, not elsewhere classified; N39.0 Urinary tract infection, site not specified; G93.40 Encephalopathy, unspecified; Z16.24 Resistance to multiple antibiotics; E11.9 Type 2 diabetes mellitus without complications; E78.5 Hyperlipidemia, unspecified; F03.90 Unspecified dementia, unspecified severity, without behavioral disturbance, psychotic disturbance, mood disturbance, and anxiety; Z86.16 Personal history of COVID-19; Z86.73 Personal history of transient ischemic attack (TIA), and cerebral infarction without residual deficits; Z86.718 Personal history of other venous thrombosis and embolism; R53.1 Weakness; F01.50 Vascular dementia, unspecified severity, without behavioral disturbance, psychotic disturbance, mood disturbance, and anxiety; E11.65 Type 2 diabetes mellitus with hyperglycemia; I48.91 Unspecified atrial fibrillation; R13.10 Dysphagia, unspecified; N40.0 Benign prostatic hyperplasia without lower urinary tract symptoms; D64.9 Anemia, unspecified; F32.9 Major depressive disorder, single episode, unspecified; J45.909 Unspecified asthma, uncomplicated; Z93.1 Gastrostomy status; Z92.21 Personal history of antineoplastic chemotherapy; Z86.711 Personal history of pulmonary embolism; Z79.899 Other long term (current) drug therapy; Z87.01 Personal history of pneumonia (recurrent); Z74.01 Bed confinement status; Z92.3 Personal history of irradiation; Z88.2 Allergy status to sulfonamides; Z20.822 Contact with and (suspected) exposure to COVID-19; T38.0X5A Adverse effect of glucocorticoids and synthetic analogues, initial encounter; T50.2X5A Adverse effect of carbonic-anhydrase inhibitors, benzothiadiazides and other diuretics, initial encounter; Y92.9 Unspecified place or not applicable; Z85.118 Personal history of other malignant neoplasm of bronchus and lung
CPT/HCPCS: 36415; 36600; 71045-TC; 80048-TC; 80076-TC; 81001; 82803-TC; 82962-TC; 83605-TC; 83880; 84484-TC; 85025-TC; 85730-TC; 87040-TC; 87070-TC; 87075-TC; 87081-TC; 87086-TC; 87102-TC; 88108-TC; 88305-TC; 89051-TC; 94799-TC; G0378; J1650; J1815; J1940; J2920; J2930; U0003

== ENCOUNTER 2021-04-26 14:57 | Inpatient (IN) | payer MEDICARE, OTHER ==
[~2021-04-26] VITALS: Ht 177.8 cm; Wt 71.3 kg
[~2021-04-26 14:57] MED LIST: ACET-868 GT; ALLO100T GT; ASCO-352 GT; DOCU50LI GT; DONE10TA11 GT; ESCI10TA GT; FERR300L GT; GABA-532 GT; INSU100V27 SQ; IPRA3AMP23 IH; MAGN400O6 GT; MAGN400T26 GT; NUT.237L30 GT; ONDA4TAB5 GT; POTA20PA3 GT
--- NOTE | 2021-04-26 15:00 | NUR ---
KORTNEY Russo FROM [facility]. C/O LOW O2 SAT PER EMS O2 SAT 93% ON RA. AOX1, RR EVEN AND UNLABORED. PLACED ON 2LPM OXYGEN VIA NC. SAFETY PRECAUTIONS INITIATED PER PROTOCOL
--- NOTE | 2021-04-26 15:32 | NUR ---
BLOOD WORK COLLECTED AND SENT TO LAB
--- NOTE | 2021-04-26 15:42 | NUR ---
SOFTWARE RELEASE ENGINEER AT PT'S BEDSIDE
--- NOTE | 2021-04-26 15:53 | NUR ---
URINE COLLECTED AND SENT TO LAB
[2021-04-26 16:09] LABS: BASOPHILS % (AUTO) 0.6 % (0.0-2.0); EOSINOPHILS % (AUTO) 6.7 % (0.0-6.0); HEMATOCRIT 44 % (39-51); HEMOGLOBIN 14.3 g/dL (13.5-17.5); LYMPHOCYTES # (AUTO) 1.3 K/uL (0.8-4.8); LYMPHOCYTES % (AUTO) 16.7 % (20.0-44.0); MEAN CORPUSCULAR HGB CONC 33 g/dl (31.0-36.0); MEAN CORPUSCULAR VOLUME 90 fL (80-96); MONOCYTES # (AUTO) 0.6 K/uL (0.1-1.30); MONOCYTES % (AUTO) 7.1 % (2.0-12.0); NEUTROPHILS # (AUTO) 5.4 K/uL (1.8-8.9); NEUTROPHILS % (AUTO) 68.9 % (43.0-81.0); PLATELET COUNT (AUTO) 213 K/uL (150-450); RED BLOOD CELL COUNT(AUTO) 4.93 MIL/uL (4.5-6.0); WHITE BLOOD COUNT (AUTO) 7.8 K/uL (4.3-11.0)
[2021-04-26 16:16] LABS: CALCIUM, SERUM 9.4 mg/dL (8.5-10.1); POTASSIUM 3.8 mmol/L (3.5-5.1)
[2021-04-26] MEDS ORDERED: PANT40TA2 GT (16:36)
[2021-04-26] MEDS ORDERED: CARV3.12 GT (16:36)
[2021-04-26] MEDS ORDERED: DOCU-141 GT (16:36)
[2021-04-26] MEDS ORDERED: FURO-144 GT (16:36)
--- NOTE | 2021-04-26 17:00 | NUR ---
DR METZ ACCEPTING PT, SPOKE WITH DR SERNA
--- NOTE | 2021-04-26 17:34 | NUR ---
COVID SWAB DONE AND SENT TO THE LAB
--- NOTE | 2021-04-26 18:54 | NUR ---
DR METZ AT THE BEDSIDE
[2021-04-26] MEDS ORDERED: ACETAMINOPHEN 325 MG TABLET PO PRN (19:00)
[2021-04-26] MEDS ORDERED: MAGNESIUM HYDROXIDE 30 ML UDC GT PRN (19:00)
[2021-04-26] MEDS ORDERED: ONDANSETRON HCL/PF 4 MG/2 ML VIAL IV PRN (19:30)
[2021-04-26] MEDS ORDERED: DEXTROSE 50%-WATER 50 ML DISP.SYRIN IV PRN (19:30)
[2021-04-26] MEDS ORDERED: JEVITY 1.2 CAL 1,000 ML BOTTLE GT SCH (19:30)
[2021-04-26] MEDS ORDERED: MORPHINE SULFATE INJ 2 MG/ML DISP.SYRIN IV PRN (19:30)
--- NOTE | 2021-04-26 20:00 | NUR ---
MRSA SWAB COLLECTED AND SENT TO LAB. PATIENT'S BELONGINGS LIST DONE.
--- NOTE | 2021-04-26 20:40 | NUR ---
RN NOTES RECEIVED ER ADMISSION REPORT FROM SABI COLEMAN. ALL PERTINENT ADMISSION INFO REGARDING PT NOTED. WILL WAIT FOR PT TO BE TRANSFERRED TO UNIT AND ADDRESS NEEDS ACCORDINGLY. GUIDANCE COUNSELOR MADE AWARE.
--- NOTE | 2021-04-26 20:49 | NUR ---
GAVE REPORT TO GALE DICKERSON RN FOR PANTERA
[2021-04-26 20:55] VITALS: BP 141/83
[2021-04-26] MEDS: IPRATROPIUM NEB FS 0.5 MG/2.5 ML AMPUL.NEB NEB SCH (21:00)
[2021-04-26] MEDS: ALBUTEROL FS 2.5 MG/0.5 ML VIAL.NEB NEB SCH (21:00)
--- NOTE | 2021-04-26 21:02 | NUR ---
PT TRANSFERRED TO [facility] VIA ACLS PROTOCOL
[2021-04-26] MEDS ORDERED: PIPERACILLIN /TAZOBACTAM 3.375 G VIAL IV ONE (21:31)
[2021-04-26] MEDS: GABAPENTIN 100 MG CAPSULE GT SCH (21:47)
[2021-04-26] MEDS: HEPARIN SODIUM, PORCINE 5000 UNITS/1 ML VIAL SQ SCH (21:50)
[2021-04-26] MEDS: PIPERACILLIN /TAZOBACTAM 3.375 G in IV D5W 50 ML IV SCH (21:53)
--- NOTE | 2021-04-26 22:07 | NUR ---
breathing tx not given due to pending pcr covid test result. margoth bains notified. no respiratory distress noted at this time
[2021-04-26] MEDS: BLOOD SUGAR DIAGNOSTIC 1 EACH STRIP IN SCH (23:53)
[2021-04-26] MEDS: INSULIN REGULAR, HUMAN 100 UNIT/ML 3 ML VIAL SQ PRN (23:56)
[2021-04-27] VITALS: BP 110/76
[2021-04-27] MEDS ORDERED: PIPERACILLIN /TAZOBACTAM 3.375 G in IV D5W 50 ML IV SCH
[2021-04-27] MEDS: IPRATROPIUM NEB FS 0.5 MG/2.5 ML AMPUL.NEB NEB SCH ×7 (01:00→21:00)
[2021-04-27] MEDS: ALBUTEROL FS 2.5 MG/0.5 ML VIAL.NEB NEB SCH ×7 (01:00→21:00)
[2021-04-27] MEDS ORDERED: PIPERACILLIN /TAZOBACTAM 3.375 G VIAL IV ONE (03:55)
[2021-04-27 04:00] VITALS: BP 116/72
[2021-04-27] MEDS: PIPERACILLIN /TAZOBACTAM 3.375 G in IV D5W 50 ML IV SCH (04:06)
[2021-04-27] MEDS: INSULIN REGULAR, HUMAN 100 UNIT/ML 3 ML VIAL SQ PRN ×4 (05:44→23:36)
[2021-04-27] MEDS: BLOOD SUGAR DIAGNOSTIC 1 EACH STRIP IN SCH ×4 (05:45→23:35)
--- NOTE | 2021-04-27 06:55 | NUR ---
RN CLOSING NOTE: PATIENT REMAINS IN ROOM IN NO SIGNS OF RESPIRATORY DISTRESS, PATIENT STILL ON 2L OF 02 VIA NC;TOLERATING WELL SATURATING @ >95% SP02. SAFETY MEASURES IMPLEMENTED, BED IN LOWEST POSITION, LOCKED, SIDE RAILS UP, CALL LIGHT WITHIN REACH. ALL NEEDS AND ORDERS ADDRESSED DURING THE SHIFT. IV ACCESS MAINTAINED INTACT, SECURED AND FLUSHING WELL. ALL DUE MEDS GIVEN ORDERED & SCHEDULED ; PATIENT TOLERATED WELL. PATIENT KEPT CLEAN AND COMFORTABLE WITHIN THE SHIFT. PATIENT ENDORSED TO INCOMING SHIFT RN WITH STABLE VITAL SIGN AND FOR CONTINUITY OF CARE.
[2021-04-27 07:29] LABS: BASOPHILS % (AUTO) 0.4 % (0.0-2.0); HEMATOCRIT 39 % (39-51); HEMOGLOBIN 12.7 g/dL (13.5-17.5); LYMPHOCYTES # (AUTO) 1.1 K/uL (0.8-4.8); MEAN CORPUSCULAR HGB CONC 32 g/dl (31.0-36.0); MEAN CORPUSCULAR VOLUME 91 fL (80-96); MONOCYTES # (AUTO) 0.7 K/uL (0.1-1.30); MONOCYTES % (AUTO) 10.7 % (2.0-12.0); NEUTROPHILS # (AUTO) 4.7 K/uL (1.8-8.9); NEUTROPHILS % (AUTO) 69.9 % (43.0-81.0); PLATELET COUNT (AUTO) 179 K/uL (150-450); RED BLOOD CELL COUNT(AUTO) 4.33 MIL/uL (4.5-6.0); WHITE BLOOD COUNT (AUTO) 6.8 K/uL (4.3-11.0)
[2021-04-27 07:58] LABS: ALANINE AMINOTRANSFERASE 15 U/L (12-78); ALBUMIN 2.7 g/dL (3.4-5.0); ALKALINE PHOSPHATASE 78 U/L (46-116); ASPARTATE AMINOTRANSFERASE 21 U/L (15-37); BILIRUBIN,TOTAL 0.5 mg/dL (0.2-1.0); CALCIUM, SERUM 8.9 mg/dL (8.5-10.1); CARBON DIOXIDE 30 mmol/L (21-32); CHLORIDE 102 mmol/L (98-107); CREATININE 0.9 mg/dL (0.6-1.3); GLUCOSE 163 mg/dL (74-106); POTASSIUM 3.9 mmol/L (3.5-5.1); SODIUM SERUM 138 mmol/L (136-145); TOTAL PROTEIN, SERUM 7.2 g/dL (6.4-8.2); UREA NITROGEN, BLOOD 20 mg/dL (7-18)
[2021-04-27 08:00] VITALS: BP 109/68
--- NOTE | 2021-04-27 08:00 | NUR ---
telegraphic typewriter installer note patient in bed open both eyes by calling his name , on 2l nc of o2 no sob noted at this time, with g tube feeding as ordered, no residual noted m keep hob elevated at all time, rt and lt fa hl intact and flushed well , bed in lowest and locked position will cont to monitor
[2021-04-27] MEDS: MAGNESIUM OXIDE 400 MG TABLET GT SCH (09:31)
[2021-04-27] MEDS: DOCUSATE SODIUM 100 MG CAPSULE PO SCH ×2 (09:31→16:21)
[2021-04-27] MEDS: ESCITALOPRAM OXALATE (10 MG) 10 MG TABLET GT SCH (09:32)
[2021-04-27] MEDS: ASCORBIC ACID 500 MG TABLET GT SCH (09:32)
[2021-04-27] MEDS: FUROSEMIDE 40 MG TABLET GT SCH (09:32)
[2021-04-27] MEDS: CARVEDILOL 3.125 MG TABLET GT SCH ×2 (09:32→16:23)
[2021-04-27] MEDS: PANTOPRAZOLE 40 MG TABLET.DR PO SCH (09:33)
[2021-04-27] MEDS: ALLOPURINOL 100 MG TABLET GT SCH (09:33)
[2021-04-27] MEDS: POTASSIUM CHLORIDE 20 MEQ POWDER PACKET GT SCH (09:33)
[2021-04-27] MEDS: HEPARIN SODIUM, PORCINE 5000 UNITS/1 ML VIAL SQ SCH ×2 (09:35→21:00)
--- NOTE | 2021-04-27 11:28 | NUR ---
Spoke to SABI Merida for U/S Guided Thoracentesis that procedure will be done on Mon (04/27/21) due to patient was administered blood thinner Heparin today and pending consent not yet signed. I advised RN to withhold the blood thinner until procedure is done.
--- NOTE | 2021-04-27 11:39 | NUR ---
TELECOMMUNICATIONS FACILITY EXAMINER NOTES SPOKE TO RADIOLOGY FOR THORACENTESIS SCHEDULE FOR TOMORROW, WILL HOLD HEPARIN AND OBTAIN CONSENT, FAMILY CALLED, WAITING FOR CALL BACK. WILL INFORM DOCTOR ISAÍAS
[2021-04-27] MEDS: PIPERACILLIN /TAZOBACTAM 3.375 G in IV D5W 100 ML IV SCH ×2 (11:53→21:31)
[2021-04-27 12:00] VITALS: BP 121/77
--- NOTE | 2021-04-27 13:54 | NUR ---
telegraph dispatcher note spoke with son, telephone consent obtained for us thoracentesis also spoke with dr moralez notified that from snf has glucerna1.2 g tube feeding stated that will order one. will f\u
[2021-04-27 16:00] VITALS: BP 116/73
[2021-04-27] MEDS ORDERED: GLUCERNA 1.2 1,000 ML BOTTLE GT PRN (16:00)
[2021-04-27] MEDS ORDERED: GLUCERNA 1.2 1,000 ML BOTTLE NG PRN (16:00)
--- NOTE | 2021-04-27 18:24 | NUR ---
RN CLOSING NOTE: PATIENT IS IN BED WITH NO SIGNS OF RESPIRATORY DISTRESS AT THIS TIME, STILL ON 2L OF 02 VIA NC, TOLERATING WELL SATURATING 96%. ALL NEEDS AND ORDERS MET DURING THE SHIFT. IV ACCESS MAINTAINED INTACT, SECURED AND FLUSHING WELL. CHANGED TUBE FEEDING GLUCERNA 30CC/HR, NO RESIDUAL, TOLERATING WELL, THORACENTESIS SCHEDULE FOR TOMORROW MORNING PLEASE HOLD HEPARIN CONSENT OBTAINED, ALL DUE MEDS GIVEN SCHEDULED, PATIENT KEPT CLEAN AND COMFORTABLE . SAFETY MEASURES IMPLEMENTED, BED IN LOWEST POSITION, LOCKED, SIDE RAILS UP, CALL LIGHT WITHIN REACH. WILL ENDORSED TO INCOMING SHIFT RN
--- NOTE | 2021-04-27 18:33 | NUR ---
RUBBER TUBING BACKER NOTES CORRECTION TUBE FEEDING RUINING AT 40 CC/HR
--- NOTE | 2021-04-27 19:41 | NUR ---
RN NOTE PATIENT IN BED AWAKE, ORIENTED X1. ON O2 2L VIA NASAL CANNULA, NO SOB NOTED. RESPIRATIONS EVEN AND UNLABORED. SR ON TELE MONITOR. HEAD OF BED ELEVATED, G-TUBE FEEDING GLUCERNA 1.2 @ 30CC/HR. NO RESIDUAL NOTED. IV ACCESS ON RIGHT FA #18 AND LEFT FA #18 PATENT AND INTACT. BED LOCKED AND IN LOWEST POSITION. SAFETY MEASURES MAINTAINED. CALL LIGHT WITHIN REACH. ALL NEEDS ANTICIPATED.
[2021-04-27 20:00] VITALS: BP 135/79
[2021-04-27] MEDS: GABAPENTIN 100 MG CAPSULE GT SCH (21:31)
--- NOTE | 2021-04-27 23:05 | NUR ---
Pt HHN TX not given due to pending pcr covid test result.
[2021-04-28] VITALS: BP 131/77
[2021-04-28] MEDS: IPRATROPIUM NEB FS 0.5 MG/2.5 ML AMPUL.NEB NEB SCH ×6 (01:00→21:00)
[2021-04-28] MEDS: ALBUTEROL FS 2.5 MG/0.5 ML VIAL.NEB NEB SCH ×6 (01:00→21:00)
[2021-04-28 04:00] VITALS: BP 110/70
[2021-04-28] MEDS: PIPERACILLIN /TAZOBACTAM 3.375 G in IV D5W 100 ML IV SCH ×3 (04:56→21:22)
[2021-04-28] MEDS: BLOOD SUGAR DIAGNOSTIC 1 EACH STRIP IN SCH ×4 (05:27→23:21)
[2021-04-28] MEDS: INSULIN REGULAR, HUMAN 100 UNIT/ML 3 ML VIAL SQ PRN ×4 (05:35→23:22)
--- NOTE | 2021-04-28 06:59 | NUR ---
RN NOTE PATIENT RESTING IN BED. ON O2 2L VIA NASAL CANNULA O2 SAT 100%. HEAD OF BED ELEVATED, G-TUBE FEEDING GLUCERNA 1.2 @ 40CC/HR. NO RESIDUAL NOTED. IV ACCESS ON RIGHT FA #18 AND LEFT FA #18 PATENT AND INTACT. TURNED AND REPOSITIONED Q2H. BED LOCKED AND IN LOWEST POSITION. SAFETY MEASURES MAINTAINED. CALL LIGHT WITHIN REACH. WILL ENDORSE TO AM SHIFT.
--- NOTE | 2021-04-28 07:32 | NUR ---
RN NOTE PATIENT IS IN BED WITH HOB AT SEMI FOWLERS POSITION. PATIENT IS ON 2L NC WITH NO SIGNS OF LABORED BREATHING. PATIENT IS AOX1. GTUBE IS POSITIVE FOR PLACEMENT. R AND L FA 18 ARE PATENT AND INTACT. BED IS LOCKED IN THE LOWEST POSITION, 3 GUARD RAILS RAISED, CALL PARK WITHIN REACH, AND ALL HOSPITAL SAFETY PRECAUTIONS ARE BEING FOLLOWED. WILL CONTINUE TO MONITOR THROUGHOUT SHIFT.
[2021-04-28 08:00] VITALS: BP 114/65
--- NOTE | 2021-04-28 08:03 | NUR ---
RT HHN tx not given at this time due to pending PCR. No SOB or respiratory distress noted.
[2021-04-28] MEDS: HEPARIN SODIUM, PORCINE 5000 UNITS/1 ML VIAL SQ SCH (09:00)
[2021-04-28] MEDS: DOCUSATE SODIUM 100 MG CAPSULE PO SCH ×2 (09:08→17:06)
[2021-04-28] MEDS: PANTOPRAZOLE 40 MG TABLET.DR PO SCH (09:08)
[2021-04-28] MEDS: ASCORBIC ACID 500 MG TABLET GT SCH (09:08)
[2021-04-28] MEDS: CARVEDILOL 3.125 MG TABLET GT SCH ×2 (09:08→17:00)
[2021-04-28] MEDS: MAGNESIUM OXIDE 400 MG TABLET GT SCH (09:08)
[2021-04-28] MEDS: POTASSIUM CHLORIDE 20 MEQ POWDER PACKET GT SCH (09:08)
[2021-04-28] MEDS: FUROSEMIDE 40 MG TABLET GT SCH (09:08)
[2021-04-28] MEDS: ALLOPURINOL 100 MG TABLET GT SCH (09:08)
[2021-04-28] MEDS: ESCITALOPRAM OXALATE (10 MG) 10 MG TABLET GT SCH (09:08)
[2021-04-28 12:00] VITALS: BP 109/75
[2021-04-28 16:00] VITALS: BP 96/65
[2021-04-28] MEDS: GLUCERNA 1.2 1,000 ML BOTTLE GT PRN (18:20)
--- NOTE | 2021-04-28 18:37 | NUR ---
RN NOTE PATIENT IS IN BED WITH HOB AT SEMI FOWLERS POSITION. PATIENT IS ON 2L NC WITH NO SIGNS OF LABORED BREATHING. PATIENT IS AOX1. GTUBE IS POSITIVE FOR PLACEMENT. R AND L FA 18 ARE PATENT AND INTACT. BED IS LOCKED IN THE LOWEST POSITION, 3 GUARD RAILS RAISED, CALL PARK WITHIN REACH, AND ALL HOSPITAL SAFETY PRECAUTIONS ARE BEING FOLLOWED. ALL DUE MEDICATIONS GIVEN AND PATIENT REMAINED STABLE THROUGHOUT SHIFT. WILL ENDORSE TO PATHOLOGY LABORATORY AIDES TEACHER RN.
[2021-04-28 20:00] VITALS: BP 136/77
--- NOTE | 2021-04-28 20:02 | NUR ---
RN NOTE PATIENT ALERT AND ORIENTED X1. ON O2 2L VIA NASAL CANNULA, NO S/S OF RESPIRATORY DISTRESS. HEAD OF BED ELEVATED, G-TUBE FEEDING GLUCERNA 1.2 @ 50CC/HR. NO RESIDUAL NOTED. IV ACCESS ON RIGHT FA #18 AND LEFT FA #18 PATENT AND INTACT. BED LOCKED AND IN LOWEST POSITION. SAFETY MEASURES MAINTAINED. CALL LIGHT WITHIN REACH. ALL NEEDS ANTICIPATED.
--- NOTE | 2021-04-28 21:03 | NUR ---
RT HHN TREATMENT WAS NOT GIVEN DUE TO PENDING PCR RESULT. PATIENT STABLE ON 2L NASAL CANNULA, NO SOB NOTED AT THIS TIME. Addendum: 04/28/21 at 2105 by LEXUS ASHLEY RT Amended: Links added.
[2021-04-28] MEDS: GABAPENTIN 100 MG CAPSULE GT SCH (21:22)
[2021-04-28] MEDS: APIXABAN 5 MG TABLET PO SCH (21:24)
[2021-04-29] VITALS: BP 132/75
--- NOTE | 2021-04-29 01:00 | NUR ---
RN NOTE PATIENT SAFELY TRANSFERRED TO ROOM 316-1 PER ACLS PROTOCOL. PATIENT REMAINED STABLE. ALL MEDICATIONS TRANSFERRED WITH PATIENT. REPORT GIVEN TO PEREZ CELESTIN.
[2021-04-29 01:15] VITALS: BP 116/63
--- NOTE | 2021-04-29 01:15 | NUR ---
JEWELRY CONSULTANTSENIOR UI UX DESIGNER NOTE RECEIVED PATIENT FROM [facility]. PATIENT NON-VERBAL BUT OPENS EYES. PT STABLE ON 2 L OF OXYGEN VIA NC, NO S/S OF DISTRESS OR SOB NOTED, BREATHING EVEN AND UNLABORED. PT ON EXTERNAL CRABBING MACHINE OPERATOR READING SINUS RHYTHM, HR: 96. IV ACCESS ON LEFT AND RIGHT FOREARM INTACT AND PATENT, RIGHT FOREARM RUNNING ZOSYN @25 ML/HR. PATIENT ON GTUBE FEEDING - GLUCERNA 1.2 @ 50 ML/HR. SAFETY AND ASPIRATION PRECAUTIONS IN PLACE: CALL LIGHT WITHIN REACH, SIDE RAILS UP X 3, BED LOCKED IN LOW POSITION, BED ALARM ON, HOB ELEVATED. WILL CONTINUE TO MONITOR PATIENT
[2021-04-29] MEDS: IPRATROPIUM NEB FS 0.5 MG/2.5 ML AMPUL.NEB NEB SCH ×6 (01:48→23:25)
[2021-04-29] MEDS: ALBUTEROL FS 2.5 MG/0.5 ML VIAL.NEB NEB SCH ×6 (01:49→23:25)
[2021-04-29] MEDS: PIPERACILLIN /TAZOBACTAM 3.375 G in IV D5W 100 ML IV SCH ×3 (05:08→21:50)
[2021-04-29] MEDS: BLOOD SUGAR DIAGNOSTIC 1 EACH STRIP IN SCH ×3 (06:58→17:07)
[2021-04-29] MEDS: INSULIN REGULAR, HUMAN 100 UNIT/ML 3 ML VIAL SQ PRN ×3 (06:59→17:34)
--- NOTE | 2021-04-29 07:33 | NUR ---
COMMUNICATIONS WRITER CLOSING NOTE PATIENT SLEEPING IN BED, APPEARS COMFORTABLE AND NOT IN ANY DISTRESS. NO SIGNIFICANT CHANGES THROUGHOUT SHIFT. PT STABLE ON 2 L OF OXYGEN VIA NC, NO S/S OF DISTRESS OR SOB NOTED, BREATHING EVEN AND UNLABORED. PT ON EXTERNAL GENERAL CONTRACTOR READING SINUS RHYTHM, HR: 94. IV ACCESS ON LEFT AND RIGHT FOREARM INTACT AND PATENT, RIGHT FOREARM RUNNING ZOSYN @25 ML/HR. PATIENT ON GTUBE FEEDING - GLUCERNA 1.2 @ 50 ML/HR. MEDICATIONS GIVEN ORDERED. PATIENT NEEDS MET THROUGHOUT SHIFT. SAFETY AND ASPIRATION PRECAUTIONS IN PLACE: CALL LIGHT WITHIN REACH, SIDE RAILS UP X 3, BED LOCKED IN LOW POSITION, BED ALARM ON, HOB ELEVATED. ENDORSED TO DAY SHIFT NURSE FOR CONTINUITY OF CARE
[2021-04-29 07:35] LABS: BASOPHILS % (AUTO) 0.4 % (0.0-2.0); EOSINOPHILS % (AUTO) 5.3 % (0.0-6.0); HEMATOCRIT 40 % (39-51); HEMOGLOBIN 13.2 g/dL (13.5-17.5); LYMPHOCYTES # (AUTO) 1.3 K/uL (0.8-4.8); LYMPHOCYTES % (AUTO) 16.1 % (20.0-44.0); MEAN CORPUSCULAR HGB CONC 33 g/dl (31.0-36.0); MEAN CORPUSCULAR VOLUME 89 fL (80-96); MONOCYTES # (AUTO) 0.8 K/uL (0.1-1.30); NEUTROPHILS # (AUTO) 5.3 K/uL (1.8-8.9); NEUTROPHILS % (AUTO) 68.2 % (43.0-81.0); PLATELET COUNT (AUTO) 201 K/uL (150-450); RED BLOOD CELL COUNT(AUTO) 4.46 MIL/uL (4.5-6.0); WHITE BLOOD COUNT (AUTO) 7.8 K/uL (4.3-11.0)
[2021-04-29 08:00] VITALS: BP_SYST 106; BP_SYST 124; BP_DIAS 60; BP_DIAS 75
[2021-04-29 08:12] LABS: CALCIUM, SERUM 9.3 mg/dL (8.5-10.1); POTASSIUM 3.8 mmol/L (3.5-5.1)
[2021-04-29] MEDS: DOCUSATE SODIUM 100 MG CAPSULE PO SCH ×2 (09:00→17:00)
[2021-04-29] MEDS: DOCUSATE SODIUM LIQ 100 MG/10 ML UDC GT PRN ×2 (10:19→17:35)
[2021-04-29] MEDS: POTASSIUM CHLORIDE 20 MEQ POWDER PACKET GT SCH (10:20)
[2021-04-29] MEDS: ESCITALOPRAM OXALATE (10 MG) 10 MG TABLET GT SCH (10:20)
[2021-04-29] MEDS: ALLOPURINOL 100 MG TABLET GT SCH (10:20)
[2021-04-29] MEDS: PANTOPRAZOLE 40 MG TABLET.DR PO SCH (10:20)
[2021-04-29] MEDS: CARVEDILOL 3.125 MG TABLET GT SCH ×2 (10:21→16:38)
[2021-04-29] MEDS: FUROSEMIDE 40 MG TABLET GT SCH (10:21)
[2021-04-29] MEDS: ASCORBIC ACID 500 MG TABLET GT SCH (10:22)
[2021-04-29] MEDS: APIXABAN 5 MG TABLET PO SCH ×2 (10:27→17:35)
[2021-04-29] MEDS ORDERED: APIXABAN 5 MG TABLET PO SCH (10:30)
[2021-04-29] MEDS: MAGNESIUM OXIDE 400 MG TABLET GT SCH (10:32)
--- NOTE | 2021-04-29 12:12 | NUR ---
texted dr. luis manuel moralez with lab report of gm positive organisms in blood.
--- NOTE | 2021-04-29 14:36 | NUR ---
received vancomycin order iv.
[2021-04-29 16:00] VITALS: BP 99/68
[2021-04-29] MEDS: GLUCERNA 1.2 1,000 ML BOTTLE GT PRN (16:37)
[2021-04-29] MEDS: VANCOMYCIN 1 GM in IV D5W 250 ML IV SCH (17:09)
[2021-04-29 20:00] VITALS: BP 132/67
--- NOTE | 2021-04-29 20:00 | NUR ---
LAUNDERER HAND OPENING NOTE PATIENT SLEEPING IN BED, APPEARS COMFORTABLE AND NOT IN ANY DISTRESS, PT NON-VERBAL. PT STABLE ON 2 L OF OXYGEN VIA NC, NO S/S OF DISTRESS OR SOB NOTED, BREATHING EVEN AND UNLABORED. PT ON EXTERNAL TOOL RADIAL DRILL PRESS SET UP OPERATOR READING SINUS RHYTHM, HR: 88. IV ACCESS ON LEFT AND RIGHT FOREARM INTACT AND PATENT, SALINE LOCKED. PATIENT ON GTUBE FEEDING - GLUCERNA 1.2 @ 50 ML/HR. SAFETY AND ASPIRATION PRECAUTIONS IN PLACE: CALL LIGHT WITHIN REACH, SIDE RAILS UP X 3, BED LOCKED IN LOW POSITION, BED ALARM ON, HOB ELEVATED. WILL CONTINUE TO MONITOR PATIENT
[2021-04-29 20:30] VITALS: BP 112/72
[2021-04-29] MEDS: GABAPENTIN 100 MG CAPSULE GT SCH (22:16)
[2021-04-30] VITALS: BP 105/72
[2021-04-30] MEDS: BLOOD SUGAR DIAGNOSTIC 1 EACH STRIP IN SCH ×4 (00:30→17:43)
[2021-04-30] MEDS: INSULIN REGULAR, HUMAN 100 UNIT/ML 3 ML VIAL SQ PRN ×4 (00:32→17:39)
[2021-04-30] MEDS: VANCOMYCIN 1 GM in IV D5W 250 ML IV SCH ×2 (02:31→17:14)
[2021-04-30] MEDS: ALBUTEROL FS 2.5 MG/0.5 ML VIAL.NEB NEB SCH ×6 (03:35→23:20)
[2021-04-30] MEDS: IPRATROPIUM NEB FS 0.5 MG/2.5 ML AMPUL.NEB NEB SCH ×6 (03:35→23:20)
[2021-04-30 04:00] VITALS: BP 111/69
[2021-04-30] MEDS: PIPERACILLIN /TAZOBACTAM 3.375 G in IV D5W 100 ML IV SCH ×3 (05:29→20:15)
[2021-04-30 06:54] LABS: BASOPHILS % (AUTO) 0.5 % (0.0-2.0); EOSINOPHILS % (AUTO) 7.1 % (0.0-6.0); HEMATOCRIT 37 % (39-51); HEMOGLOBIN 12.3 g/dL (13.5-17.5); LYMPHOCYTES # (AUTO) 1.3 K/uL (0.8-4.8); LYMPHOCYTES % (AUTO) 17.2 % (20.0-44.0); MEAN CORPUSCULAR HGB CONC 33 g/dl (31.0-36.0); MEAN CORPUSCULAR VOLUME 89 fL (80-96); MONOCYTES # (AUTO) 0.7 K/uL (0.1-1.30); MONOCYTES % (AUTO) 9.3 % (2.0-12.0); NEUTROPHILS # (AUTO) 5.2 K/uL (1.8-8.9); NEUTROPHILS % (AUTO) 65.9 % (43.0-81.0); PLATELET COUNT (AUTO) 216 K/uL (150-450); RED BLOOD CELL COUNT(AUTO) 4.17 MIL/uL (4.5-6.0); WHITE BLOOD COUNT (AUTO) 7.8 K/uL (4.3-11.0)
--- NOTE | 2021-04-30 07:00 | NUR ---
CHEMISTRY INTERN CLOSING NOTE PATIENT SLEEPING IN BED, APPEARS COMFORTABLE AND NOT IN ANY DISTRESS. PATIENT GIVEN TYLENOL FOR TEMPERATURE OF 99.2. PT STABLE ON 2 L OF OXYGEN VIA NC, NO S/S OF DISTRESS OR SOB NOTED, BREATHING EVEN AND UNLABORED. PT ON EXTERNAL SECURITY SME READING SINUS RHYTHM. IV ACCESS ON LEFT AND RIGHT FOREARM INTACT AND PATENT, RIGHT FOREARM RUNNING ZOSYN @25 ML/HR. PATIENT ON GTUBE FEEDING - GLUCERNA 1.2 @ 50 ML/HR. MEDICATIONS GIVEN ORDERED. PATIENT NEEDS MET THROUGHOUT SHIFT. SAFETY AND ASPIRATION PRECAUTIONS IN PLACE: CALL LIGHT WITHIN REACH, SIDE RAILS UP X 3, BED LOCKED IN LOW POSITION, BED ALARM ON, HOB ELEVATED. WILL ENDORSE TO DAY SHIFT NURSE FOR CONTINUITY OF CARE
[2021-04-30 07:04] LABS: POTASSIUM 3.8 mmol/L (3.5-5.1)
[2021-04-30 08:00] VITALS: BP 115/67
[2021-04-30] MEDS: DOCUSATE SODIUM 100 MG CAPSULE PO SCH ×2 (09:00→17:00)
[2021-04-30] MEDS: DOCUSATE SODIUM LIQ 100 MG/10 ML UDC GT PRN ×2 (10:12→17:36)
[2021-04-30] MEDS: CARVEDILOL 3.125 MG TABLET GT SCH ×2 (10:12→17:00)
[2021-04-30] MEDS: ASCORBIC ACID 500 MG TABLET GT SCH (10:12)
[2021-04-30] MEDS: ESCITALOPRAM OXALATE (10 MG) 10 MG TABLET GT SCH (10:13)
[2021-04-30] MEDS: ALLOPURINOL 100 MG TABLET GT SCH (10:13)
[2021-04-30] MEDS: PANTOPRAZOLE 40 MG TABLET.DR PO SCH (10:13)
[2021-04-30] MEDS: FUROSEMIDE 40 MG TABLET GT SCH (10:13)
[2021-04-30] MEDS: MAGNESIUM OXIDE 400 MG TABLET GT SCH (10:13)
[2021-04-30] MEDS: APIXABAN 5 MG TABLET PO SCH ×2 (10:14→17:40)
[2021-04-30] MEDS: POTASSIUM CHLORIDE 20 MEQ POWDER PACKET GT SCH (10:19)
[2021-04-30] MEDS: INSULIN GLARGINE, 100 UNIT/ML CARTRIDGE SQ SCH (11:12)
[2021-04-30 12:00] VITALS: BP 114/69
--- NOTE | 2021-04-30 15:00 | NUR ---
coughing non stop. resp. tx called for early breathing tx.pt. suctioned as well.
[2021-04-30 16:00] VITALS: BP 100/63
[2021-04-30] MEDS: GLUCERNA 1.2 1,000 ML BOTTLE GT PRN (17:03)
[2021-04-30 20:00] VITALS: BP 115/76
[2021-04-30] MEDS: GABAPENTIN 100 MG CAPSULE GT SCH (21:28)
[2021-05-01] VITALS: BP 120/82
[2021-05-01] MEDS: INSULIN REGULAR, HUMAN 100 UNIT/ML 3 ML VIAL SQ PRN ×3 (00:56→12:37)
[2021-05-01] MEDS: BLOOD SUGAR DIAGNOSTIC 1 EACH STRIP IN SCH ×3 (00:57→12:24)
[2021-05-01] MEDS: VANCOMYCIN 1 GM in IV D5W 250 ML IV SCH (02:00)
--- NOTE | 2021-05-01 02:19 | NUR ---
Vanco trough 26. Last Vanco dose administered at 1700 instead of 1400, 3 hours late. Per pharmacy that is probably why the trough is so high. Recheck levels at 0400 and hold off on 0200 dose for now.
[2021-05-01] MEDS: IPRATROPIUM NEB FS 0.5 MG/2.5 ML AMPUL.NEB NEB SCH ×4 (03:13→15:36)
[2021-05-01] MEDS: ALBUTEROL FS 2.5 MG/0.5 ML VIAL.NEB NEB SCH ×4 (03:13→15:36)
--- NOTE | 2021-05-01 03:34 | NUR ---
Patient had x1 large black tarry stool. New order for stool occult blood. Collected specimen and put in [facility] fridge.
[2021-05-01 04:00] VITALS: BP 115/66
--- NOTE | 2021-05-01 04:33 | NUR ---
called lab to ask if 0400 vanco trough has been drawn yet. hvac service tech said they will follow up.
--- NOTE | 2021-05-01 04:56 | NUR ---
CBC also ordered for this AM d/t black tarry stools.
--- NOTE | 2021-05-01 05:08 | NUR ---
Lab called said unable to do Vanco trough on time d/t short staffing, but will draw with AM labs now that Am phlebotomists are here. Continue to hold off on Vanco for now.
[2021-05-01] MEDS: PIPERACILLIN /TAZOBACTAM 3.375 G in IV D5W 100 ML IV SCH ×2 (05:10→12:53)
[2021-05-01 05:58] LABS: BASOPHILS % (AUTO) 0.5 % (0.0-2.0); EOSINOPHILS % (AUTO) 6.8 % (0.0-6.0); HEMATOCRIT 37 % (39-51); HEMOGLOBIN 12.4 g/dL (13.5-17.5); LYMPHOCYTES # (AUTO) 1.2 K/uL (0.8-4.8); LYMPHOCYTES % (AUTO) 15.5 % (20.0-44.0); MEAN CORPUSCULAR HGB CONC 34 g/dl (31.0-36.0); MEAN CORPUSCULAR VOLUME 89 fL (80-96); MONOCYTES # (AUTO) 0.6 K/uL (0.1-1.30); NEUTROPHILS # (AUTO) 5.5 K/uL (1.8-8.9); NEUTROPHILS % (AUTO) 69.2 % (43.0-81.0); PLATELET COUNT (AUTO) 211 K/uL (150-450); RED BLOOD CELL COUNT(AUTO) 4.15 MIL/uL (4.5-6.0); WHITE BLOOD COUNT (AUTO) 7.9 K/uL (4.3-11.0)
--- NOTE | 2021-05-01 06:10 | NUR ---
Patient noted to have DTI and blister to L foot that was not present on admission assessment. Applied mepilex, offloaded, wound care consult ordered.
--- NOTE | 2021-05-01 06:34 | NUR ---
notified that first vanco trough was 26 at 0100 but Vanco admin time on Am shift was late. 0400 vanco trough was drawn late at 0520 and was 19 -which is borderline. Dr. leyva hold 0200 dose and have pharmacy continue to dose. Addendum: 05/01/21 at 0637 by SAPNA QUIROGA RN not to change schedule*
--- NOTE | 2021-05-01 07:25 | NUR ---
Patient awake andd alert opening eyes. No signs of distress. Cooperative with care.
--- NOTE | 2021-05-01 07:30 | NUR ---
RN OPENING TELE NOTES: PATIENT SLEEPING IN BED, CALM AND COMFORTABLE. PT NON-VERBAL. PATIENT ON O2 INHALATION OF OXYGEN VIA NC, @ 2L/MIN. NO RESPIRATORY DISTRESS OR SOB NOTED, BREATHING EVEN AND UNLABORED. nO PAIN NO DISCOMFORT NO FACIAL GRIMACING NOTED.TELE PATIENT MONITOR READING SR=96. IV ACCESS ON LEFT AND RIGHT FOREARM G=18 INTACT AND PATENT, SALINE LOCKED. NO SWELLING , NO REDNESS NO BLEEDING NOTED.PATIENT ON G-TUBE FEEDING OF GLUCERNA 1.2 @ 50 ML/HR. SAFETY AND ASPIRATION PRECAUTIONS IN PLACE: HEAD ELEVATED FOR ASPIRATION PRECAUTION. CALL LIGHT WITHIN REACH, SIDE RAILS UP X 3, BED LOCKED IN LOW POSITION, BED ALARM ON. WILL CONTINUE TO MONITOR PATIENT
--- NOTE | 2021-05-01 07:36 | NUR ---
Notified [facility] of vanco trough levels and timing -pharm said they will adjust the dose.
[2021-05-01 07:46] LABS: OCCULT BLOOD STOOL NEGATIVE (NEGATIVE)
--- NOTE | 2021-05-01 07:59 | NUR ---
WOUND CARE CONSULT: PT PRESENTS WITH INTACT DEEP TISSUE INJURY TO LEFT MEDIAL FOOT WELL SCARRING TO BILATERAL FEET AND SACRUM. LOWER EXTREMITY CONTRACTURES NOTED. RECOMMENDATIONS MADE FOR SKIN PROTECTION. DISCUSSED WITH NURSING STAFF. FIRST STEP LOW AIRLOSS MATTRESS IS ON ORDER. DEFER TO PMD FOR POSSIBLE PODIATRY CONSULT. MD IN AGREEMENT WITH PLAN OF CARE. Addendum: 05/01/21 at 0801 by RADHA MELENDREZ Amended: Links added. Addendum: 05/01/21 at 0850 by RADHA MELENDREZ ADDITIONAL: PT NOTED TO HAVE MULTIPLE CO-MORBIDITIES INCLUDING VASCULAR DEMENTIA, CHRONIC ENCEPHALOPATHY, HISTORY OF CVA, FUNCTIONAL QUADRIPLEGIA, DIABETES, LUNG CANCER WITH PREVIOUS CHEMO AND RADIATION, AND HISTORY OF COVID 19 INFECTION. DUE TO MULTIPLE CO-MORBIDITIES, FURTHER SKIN BREAKDOWN MAY BE UNAVOIDABLE.
[2021-05-01] MEDS ORDERED: Z GUARD REMEDY 2 OZ OINT TP PRN (08:30)
[2021-05-01] MEDS: POTASSIUM CHLORIDE 20 MEQ POWDER PACKET GT SCH (08:50)
[2021-05-01] MEDS: PANTOPRAZOLE 40 MG TABLET.DR PO SCH (08:50)
[2021-05-01] MEDS: MAGNESIUM OXIDE 400 MG TABLET GT SCH (08:51)
[2021-05-01] MEDS: DOCUSATE SODIUM 100 MG CAPSULE PO SCH (08:51)
[2021-05-01] MEDS: ESCITALOPRAM OXALATE (10 MG) 10 MG TABLET GT SCH (08:54)
[2021-05-01] MEDS: ASCORBIC ACID 500 MG TABLET GT SCH (08:54)
[2021-05-01] MEDS: ALLOPURINOL 100 MG TABLET GT SCH (08:54)
[2021-05-01] MEDS: FUROSEMIDE 40 MG TABLET GT SCH (08:54)
[2021-05-01 08:55] VITALS: BP 96/90
[2021-05-01] MEDS: CARVEDILOL 3.125 MG TABLET GT SCH (08:55)
[2021-05-01] MEDS: APIXABAN 5 MG TABLET PO SCH (08:57)
[2021-05-01] MEDS ORDERED: Z GUARD REMEDY 2 OZ OINT TP SCH (09:00)
[2021-05-01] MEDS: INSULIN GLARGINE, 100 UNIT/ML CARTRIDGE SQ SCH (09:40)
--- NOTE | 2021-05-01 09:59 | NUR ---
HELD ELIQUIS MORNING DOSE PER MAGNETIC RESONANCE IMAGING COORDINATOR NURSE REPORT, THE PATIENT HAD TARRY STOOL. HELD COREG MORNING DOSE FOR BP=96/90, P=[phone]
[2021-05-01] MEDS ORDERED: VANCOMYCIN 0.75 GM in IV D5W 250 ML IV SCH ×2 (15:00→18:00)
--- NOTE | 2021-05-01 15:41 | NUR ---
RT NOTE PT FOUND ON ROOM AIR. SABI BOSTON.
--- NOTE | 2021-05-01 17:41 | NUR ---
RN/NOTES PATIENT IS NON VERBAL AND OPEN EYES. PATIENT IS ON ROOM AIR. PATIENT IN NO APPARENT RESPIRATORY DISTRESS NOTED. NO SIGN AND SYMPTOM OF PAIN NOTED. SEEN AND EXAMINED BY MD WITH ORDERS MADE AND CARRIED OUT. ALL DUE MEDICATIONS WAS GIVEN. DISCHARGED INSTRUCTIONS WAS REPORTED TO KENDELL CELESTIN AT [facility]. PATIENT LEFT THE HOSPITAL IN MEDICALLY STABLE CONDITION, SUPER[employer]OR [employer] BY 2 EMT VIA AMBULANCE.
== END 2021-05-01 16:50 | DRG 177 ==
LOC: ER 15:01 → TELE1 20:23 → TELE 04-29 00:56
PROVIDERS: ADMIT Internal Medicine; ATTEND Internal Medicine
PROC: 0W993ZZ Drainage of Right Pleural Cavity, Percutaneous Approach (ICD-10-PCS; principal; 2021-04-28)
DX: J69.0 Pneumonitis due to inhalation of food and vomit (principal); R53.2 Functional quadriplegia; J96.01 Acute respiratory failure with hypoxia; J90 Pleural effusion, not elsewhere classified; I82.511 Chronic embolism and thrombosis of right femoral vein; G93.49 Other encephalopathy; I11.0 Hypertensive heart disease with heart failure; I50.9 Heart failure, unspecified; E78.5 Hyperlipidemia, unspecified; N40.1 Benign prostatic hyperplasia with lower urinary tract symptoms; R13.10 Dysphagia, unspecified; Z85.118 Personal history of other malignant neoplasm of bronchus and lung; Z86.73 Personal history of transient ischemic attack (TIA), and cerebral infarction without residual deficits; Z92.3 Personal history of irradiation; Z92.21 Personal history of antineoplastic chemotherapy; Z93.1 Gastrostomy status; Z86.16 Personal history of COVID-19; Z88.2 Allergy status to sulfonamides; E11.9 Type 2 diabetes mellitus without complications; F01.50 Vascular dementia, unspecified severity, without behavioral disturbance, psychotic disturbance, mood disturbance, and anxiety; D64.9 Anemia, unspecified; F29 Unspecified psychosis not due to a substance or known physiological condition; F32.A Depression, unspecified; Z79.01 Long term (current) use of anticoagulants; Z79.4 Long term (current) use of insulin; Z79.899 Other long term (current) drug therapy; Z86.711 Personal history of pulmonary embolism; Z20.822 Contact with and (suspected) exposure to COVID-19
CPT/HCPCS: 36415; 71045-TC; 71250-TC; 80048-TC; 80053-TC; 80202-TC; 82272-TC; 82962-TC; 85025-TC; 85610-TC; 87040-TC; 87070-TC; 87075-TC; 87081-TC; 87102-TC; 88108-TC; 88305-TC; 89051-TC; 93970-TC; 94799-TC; A6253; G0378; J1644; J1815; J2543; J3370; J7050; J7060; U0003

== ENCOUNTER 2022-02-24 06:28 | Inpatient (IN) | payer MEDICARE, OTHER ==
[~2022-02-24] VITALS: Ht 177.8 cm; Wt 72.6 kg
[~2022-02-24 06:28] MED LIST changes: +CARV3.12 GT; +DOCU-141 GT; +FURO-144 GT; +PANT40TA2 GT
--- NOTE | 2022-02-24 06:36 | NUR ---
[id number] FROM SNF FOR ALTERED MENTAL STATUS ALSO DESATTING ON 2L NC 80% ON NRB 15L SATTING 92% TACHY 150 +RHONCHI TEMP: 102 AXILLARY. PATIENT NON VERBAL BS 528 AT THE SCENE PER EMS. IN BED 02 ON MONITOR AND POX AWAITING MD KUO.
--- NOTE | 2022-02-24 06:41 | NUR ---
BLOOD AND CULTURES DRAWN AND SENT TO LAB
--- NOTE | 2022-02-24 06:41 | NUR ---
EMT AT BEDSIDE
--- NOTE | 2022-02-24 06:42 | NUR ---
Heavenly louise in [facility] - 02/24/22 at 0714 by MANN URINE COLLECTED AND SENT TO LAB
--- NOTE | 2022-02-24 06:51 | NUR ---
COVID SWAB DONE AND SENT TO LAB
[2022-02-24] MEDS ORDERED: IV NS 0.9% 500 ML BAG IV ONE (07:00)
--- NOTE | 2022-02-24 07:20 | NUR ---
SPRAY DRIER AT PT'S BEDSIDE
[2022-02-24 07:36] LABS: CARBON DIOXIDE 24 mmol/L (21-32); CHLORIDE 111 mmol/L (98-107); POTASSIUM 4.6 mmol/L (3.5-5.1); SODIUM SERUM 148 mmol/L (136-145); UREA NITROGEN, BLOOD 51 mg/dL (7-18)
[2022-02-24 07:38] LABS: ALANINE AMINOTRANSFERASE 22 U/L (12-78); ALBUMIN 2.2 g/dL (3.4-5.0); ALKALINE PHOSPHATASE 75 U/L (46-116); ASPARTATE AMINOTRANSFERASE 32 U/L (15-37); BILIRUBIN,DIRECT 0.1 mg/dL (0.0-0.2); BILIRUBIN,TOTAL 0.4 mg/dL (0.2-1.0)
[2022-02-24 07:44] LABS: GLUCOSE 544 mg/dL (74-106)
--- NOTE | 2022-02-24 07:45 | NUR ---
MOVE SHEET SUBMITTED.
[2022-02-24] MEDS ORDERED: PANT20TA17 GT (07:47)
[2022-02-24] MEDS ORDERED: ALBU2.5V38 IH (07:47)
[2022-02-24] MEDS ORDERED: MULT-447 GT (07:47)
[2022-02-24] MEDS ORDERED: INSU100V7 SQ (07:47)
[2022-02-24] MEDS ORDERED: APIX5TAB GT (07:47)
[2022-02-24] MEDS ORDERED: DAPA5TAB GT (07:47)
[2022-02-24] MEDS ORDERED: IPRA0.2S9 IH (07:47)
[2022-02-24] MEDS ORDERED: ACET650S26 GT (07:47)
[2022-02-24] MEDS ORDERED: AMIN30LI2 GT (07:47)
[2022-02-24 07:51] LABS: BASOPHILS # (AUTO) 0.1 K/uL (0.0-0.2); BASOPHILS % (AUTO) 0.7 % (0.0-2.0); EOSINOPHILS % (AUTO) 0.2 % (0.0-6.0); HEMATOCRIT 51 % (39-51); HEMOGLOBIN 15.8 g/dL (13.5-17.5); LYMPHOCYTES % (AUTO) 22.5 % (20.0-44.0); MEAN CORPUSCULAR HGB CONC 31 g/dl (31.0-36.0); MEAN CORPUSCULAR VOLUME 91 fL (80-96); MONOCYTES % (AUTO) 10.9 % (2.0-12.0); NEUTROPHILS # (AUTO) 11.8 K/uL (1.8-8.9); NEUTROPHILS % (AUTO) 65.7 % (43.0-81.0); PLATELET COUNT (AUTO) 348 K/uL (150-450); RED BLOOD CELL COUNT(AUTO) 5.66 MIL/uL (4.5-6.0); WHITE BLOOD COUNT (AUTO) 17.9 K/uL (4.3-11.0)
--- NOTE | 2022-02-24 08:16 | NUR ---
[facility] CALLED HEAT AND FROST INSULATOR HELPER PAGED.
--- NOTE | 2022-02-24 08:24 | NUR ---
DR. METZ SPEAKING WITH DR. SERNA.
[2022-02-24] MEDS ORDERED: MORPHINE SULFATE INJ 2 MG/ML DISP.SYRIN IV PRN (08:30)
[2022-02-24] MEDS ORDERED: IV NS 0.9% 1,000 ML BAG IV ONE (08:30)
[2022-02-24] MEDS ORDERED: CEFEPIME 1 GM in IV D5W 50 ML IV ONE (08:30)
[2022-02-24] MEDS ORDERED: VANCOMYCIN 1 GM in IV D5W 250 ML IV ONE (08:30)
[2022-02-24] MEDS ORDERED: ACETAMINOPHEN 325 MG TABLET PO PRN ×2 (08:30)
[2022-02-24] MEDS ORDERED: ONDANSETRON HCL/PF 4 MG/2 ML VIAL IVP PRN (08:30)
[2022-02-24] MEDS ORDERED: ENOXAPARIN SODIUM 40 MG/0.4 ML DISP.SYRIN SQ SCH (09:00)
[2022-02-24] MEDS ORDERED: INSULIN GLARGINE, 100 UNIT/ML CARTRIDGE SQ SCH (09:00)
[2022-02-24] MEDS ORDERED: CEFEPIME 1 GM in IV D5W 50 ML IV SCH (09:00)
[2022-02-24] MEDS ORDERED: DEXTROSE 50%-WATER 50 ML DISP.SYRIN IV PRN (09:00)
[2022-02-24] MEDS ORDERED: DOCUSATE SODIUM 100 MG CAPSULE PO SCH (09:00)
[2022-02-24] MEDS ORDERED: CARVEDILOL 3.125 MG TABLET GT SCH (09:00)
[2022-02-24] MEDS ORDERED: ACETAMINOPHEN 650 MG/20.3 ML UDC ONE (09:01)
[2022-02-24] MEDS ORDERED: ENOXAPARIN SODIUM 40 MG/0.4 ML DISP.SYRIN SQ ONE (09:01)
[2022-02-24] MEDS ORDERED: ALLOPURINOL 100 MG TABLET ONE (09:01)
[2022-02-24] MEDS: IV NS 0.9% 1,000 ML IV SCH ×2 (09:02→20:07)
[2022-02-24] MEDS ORDERED: DOCUSATE SODIUM 100 MG CAPSULE PO ONE (09:02)
[2022-02-24] MEDS ORDERED: ASCORBIC ACID 500 MG TABLET ONE (09:02)
[2022-02-24] MEDS: ACETAMINOPHEN 650 MG/20.3 ML UDC GT SCH (09:05)
[2022-02-24] MEDS: ALLOPURINOL 100 MG TABLET GT SCH (09:05)
[2022-02-24] MEDS: ASCORBIC ACID 500 MG TABLET GT SCH (09:05)
[2022-02-24] MEDS ORDERED: JEVITY 1.2 CAL 1,000 ML BOTTLE NG PRN (10:00)
--- NOTE | 2022-02-24 10:13 | NUR ---
ROOM GIVEN 326-2 NURSE IS ANA
--- NOTE | 2022-02-24 10:25 | NUR ---
REPORT GIVEN TO ANA FOR PANTERA
--- NOTE | 2022-02-24 11:00 | NUR ---
ADMISSION NOTE Received patient via gurney from ER. Report given by Chanelle at 1019. Patient is obtunded and non-verbal. On O2 at 2 LPM, no SOB or s/s distress noted. Patient made comfortable. VS taken as follows: BP 97/67, HR 101, RR 21, Temp 97.7, Spo2 96%. No belongings noted. Skin assessment done, multiple rashes and dryness noted. Open wound noted on Left foot medial area. Photos taken and placed in chart. Lungs clear on auscultation. Bowel sounds present x 4. G-tube noted, connected to Glucerna 1.2 feeding. Safety precautions in place: bed in low, locked position; siderails up x 2; call ight within reach. Will continue to monitor. Addendum: 02/24/22 at 1420 by HILL JAQUEZ RN ADD: Patient is DNI/DNI. POL in the chart. Code status ordered by Dr. Mistry. Addendum: 02/24/22 at 1426 by HILL JAQUEZ RN CORRECTION: Noechi noted on auscultation.
[2022-02-24 11:39] LABS: BILIRUBIN,URINE NEGATIVE (NEGATIVE); COLOR,URINE YELLOW (YELLOW); LEUKOCYTE ESTERASE ,URINE NEGATIVE (NEGATIVE); NITRITE, URINE NEGATIVE (NEGATIVE); PH,URINE 5.5 (5.0-8.0); PROTEIN,URINE >=300 mg/dl (NEGATIVE); UGLUCOSE >=1000 mg/dL (NEGATIVE); UROBILINOGEN,URINE 0.2 EU/dL (0.2)
[2022-02-24 12:00] VITALS: BP 97/67
--- NOTE | 2022-02-24 12:00 | NUR ---
RN NOTE Patient's blood glucose is 448, rechecked 472. Dr. Mistry notified and ordered to give the Insulin coverage of 15 units.
[2022-02-24 12:34] LABS: CREATININE, URINE 42.8 MG/DL (30.0-125.0)
[2022-02-24 12:38] LABS: BACTERIA,URINE Moderate /HPF (None Seen)
[2022-02-24 12:39] LABS: SQUAMOUS EPITHELIAL CELL,UR Moderate /HPF (None Seen); WAXY CASTS,URINE Moderate /LPF (None Seen)
[2022-02-24] MEDS: BLOOD SUGAR DIAGNOSTIC 1 EACH STRIP IN SCH ×2 (12:43→17:48)
[2022-02-24] MEDS: INSULIN REGULAR, HUMAN 100 UNIT/ML 3 ML VIAL SQ PRN ×2 (12:44→17:50)
[2022-02-24] MEDS: GLUCERNA 1.2 1,000 ML BOTTLE NG PRN (12:51)
--- NOTE | 2022-02-24 13:37 | NUR ---
RN NOTE Received critical value from October from lab, patient's lactic acid is 5.2 and troponin level is 339. Dr. Mistry and Dr. Caldwell notified.
[2022-02-24] MEDS ORDERED: ALBUTEROL FS 2.5 MG/0.5 ML VIAL.NEB NEB PRN (15:30)
[2022-02-24 16:00] VITALS: BP 106/70
[2022-02-24] MEDS: ALBUTEROL FS 2.5 MG/0.5 ML VIAL.NEB NEB SCH ×2 (16:35→23:52)
[2022-02-24] MEDS: DOCUSATE SODIUM LIQ 100 MG/10 ML UDC NG SCH (17:48)
[2022-02-24] MEDS: INSULIN GLARGINE, 100 UNIT/ML CARTRIDGE SQ SCH (18:25)
--- NOTE | 2022-02-24 19:39 | NUR ---
RN OPENING NOTES; RECEIVED PT IN SLEEPING BUT EASY TO AROUSED.PT NONVERBAL,SAMUEL WELL ON RM AIR NO SIGN SOB/DISTRESS NOTED.NO SIGN OF PAIN/DISCOMFORT AT THIS TIME,PT ON GTUBE FEEDING RUNNING GLUCERNA 1.2 @70ML/HR SAMUEL WELL ,NO RESIDUAL NOTED.HOB ELEVATED AT ALL TIMES.IV ACCESS ON LAC 20G AND L HAND 20G PATENT AND INTACT.SAFETY MEASURE INPLACE,CALL LIGHT WITHIN REACH.WILL CONTINUE TO MONITOR.
--- NOTE | 2022-02-24 19:43 | NUR ---
MS RN CLOSING NOTE Patient is obtunded and non-verbal. On O2 at 2 LPM, no SOB or s/s of distress noted. IV access on LAC #20 and Left hand #20 both SL, intact and patent. G-tube in place running Glucerna 1.2 at 70 ml/hr. Patient kept clean and dry. Due meds given. Patient turned and repositioned as tolerated. Safety precautions maintained: bed in low, locked position; siderails up x 2; call light within reach. Will endorse to warehouse supervisor 3rd shift nurse for PANTERA.
[2022-02-24 20:00] VITALS: BP 134/80
[2022-02-24] MEDS: CEFEPIME 2 GM in IV D5W 100 ML IV SCH (20:06)
--- NOTE | 2022-02-24 22:30 | NUR ---
RN NOTES; DURHAM CATHETER F16 INSERTED.DRAINING CLEARED NORM URINE.NO SIGN PAIN/DISCOMFORT.CONTINUE TO MONITOR.
[2022-02-25] MEDS: INSULIN REGULAR, HUMAN 100 UNIT/ML 3 ML VIAL SQ PRN ×5 (00:04→17:38)
[2022-02-25] MEDS: BLOOD SUGAR DIAGNOSTIC 1 EACH STRIP IN SCH ×4 (00:06→17:38)
[2022-02-25] MEDS: IV NS 0.9% 1,000 ML IV SCH (07:20)
[2022-02-25 07:37] LABS: BASOPHILS % (AUTO) 0.1 % (0.0-2.0); HEMATOCRIT 46 % (39-51); HEMOGLOBIN 14.3 g/dL (13.5-17.5); LYMPHOCYTES % (AUTO) 7.6 % (20.0-44.0); MEAN CORPUSCULAR HGB CONC 32 g/dl (31.0-36.0); MEAN CORPUSCULAR VOLUME 89 fL (80-96); MONOCYTES # (AUTO) 0.7 K/uL (0.1-1.30); MONOCYTES % (AUTO) 5.5 % (2.0-12.0); NEUTROPHILS % (AUTO) 86.8 % (43.0-81.0); PLATELET COUNT (AUTO) 178 K/uL (150-450); RED BLOOD CELL COUNT(AUTO) 5.14 MIL/uL (4.5-6.0); WHITE BLOOD COUNT (AUTO) 12.7 K/uL (4.3-11.0)
--- NOTE | 2022-02-25 07:42 | NUR ---
MS RN CLOSING NOTE; Patient is obtunded and non-verbal. On O2 at 2 LPM, no SOB or s/s of distress noted. IV access on LAC #20 and Left hand #20 both SL, intact and patent. G-tube in place running Glucerna 1.2 at 70 ml/hr.Pt F/C intact draining cleared harsh urine. Patient kept clean and dry. Due meds given. Patient turned and repositioned as tolerated. Safety precautions maintained: bed in low, locked position; siderails up x 2; call light within reach. Will endorse to shift supervisor rn.
[2022-02-25 08:00] VITALS: BP_SYST 126; BP_SYST 160; BP_DIAS 75; BP_DIAS 99
[2022-02-25 08:27] LABS: ALANINE AMINOTRANSFERASE 59 U/L (12-78); ALBUMIN 1.8 g/dL (3.4-5.0); ALKALINE PHOSPHATASE 67 U/L (46-116); ASPARTATE AMINOTRANSFERASE 50 U/L (15-37); BILIRUBIN,TOTAL 0.3 mg/dL (0.2-1.0); CALCIUM, SERUM 8.1 mg/dL (8.5-10.1); CARBON DIOXIDE 22 mmol/L (21-32); CHLORIDE 116 mmol/L (98-107); CREATININE 2.2 mg/dL (0.6-1.3); GLUCOSE 277 mg/dL (74-106); MAGNESIUM 2.6 mg/dL (1.8-2.4); PHOSPHORUS 1.5 mg/dL (2.5-4.9); POTASSIUM 3.9 mmol/L (3.5-5.1); SODIUM SERUM 149 mmol/L (136-145); TOTAL PROTEIN, SERUM 6.3 g/dL (6.4-8.2); UREA NITROGEN, BLOOD 71 mg/dL (7-18)
[2022-02-25 08:40] LABS: THYROID STIMULATING HORMONE 1.863 uIU/mL (0.358-3.74)
--- NOTE | 2022-02-25 08:46 | NUR ---
WOUND CARE CONSULT: PT PRESENTS WITH LOWER EXTREMITY CONTRACTURES, DISCOLORATION/SKIN CONDITION TO ABDOMEN, BACK AND LOWER EXTREMITIES, SACRAL SCARRING, INTACT DEEP TISSUE INJURIES TO LEFT FOOT AND BLACK NECROTIC TISSUE TO RT TOES, PRESENT ON ADMISSION. DEFER TO PMD FOR GENERALIZED SKIN CONDITION. DPM CONSULT CALLED TO DR CUENCA. RECOMMENDATIONS MADE FOR SKIN PROTECTION AND DISCUSSED WITH NURSING STAFF. [facility] IN AGREEMENT WITH PLAN OF CARE. Addendum: 02/25/22 at 0849 by RADHA ROMAN WNDNU Amended: Links added.
[2022-02-25] MEDS: ALBUTEROL FS 2.5 MG/0.5 ML VIAL.NEB NEB SCH ×2 (08:52→16:17)
[2022-02-25] MEDS ORDERED: HEPARIN SODIUM, PORCINE 5000 UNITS/1 ML VIAL SQ SCH (09:00)
[2022-02-25] MEDS: CEFEPIME 2 GM in IV D5W 100 ML IV SCH ×2 (09:00→20:32)
[2022-02-25] MEDS: Z GUARD REMEDY 4 OZ OINT TP SCH (09:00)
[2022-02-25] MEDS: IV 1/2NS 1000 ML 1,000 ML IV SCH ×2 (10:00→20:32)
[2022-02-25] MEDS: VANCOMYCIN 1 GM in IV D5W 250 ML IV SCH (10:47)
[2022-02-25] MEDS: ASCORBIC ACID 500 MG TABLET GT SCH (10:48)
[2022-02-25] MEDS: NEUTRA PHOS 1 POWD.PACKET PO SCH ×2 (10:48→17:39)
[2022-02-25] MEDS: ALLOPURINOL 100 MG TABLET GT SCH (10:48)
[2022-02-25] MEDS: DOCUSATE SODIUM LIQ 100 MG/10 ML UDC NG SCH (10:48)
[2022-02-25] MEDS: ACETAMINOPHEN 650 MG/20.3 ML UDC GT SCH (10:48)
[2022-02-25] MEDS: APIXABAN 2.5 MG TABLET PO SCH ×2 (11:04→17:36)
[2022-02-25] MEDS: INSULIN GLARGINE, 100 UNIT/ML CARTRIDGE SQ SCH ×2 (12:51→17:38)
[2022-02-25 16:00] VITALS: BP 130/76
--- NOTE | 2022-02-25 18:40 | NUR ---
RN CLOSING NOTE PATIENT NON VERBAL. REMAINS ON SUPPLEMENTAL OXYGEN 2L VIA NASAL CANULA. TOLERATING WELL. NO S/SX OF PAIN OR RESPIRATORY DISTRESS. ALL MEDS AND INTAKE GIVEN VIA G-TUBE. TOLERATED ALL WELL. BLOOD SUGAR LEVELS ELEVATED ON SHIFT, RECEIVED COVERAGE FOR BOTH. 1200 =382/15UNITS 1700= 299/9UNITS. PATIENT RECEIVING CONTINUOUS IV FLUIDS, 0.45% NS @ 100ML/HR. TOLERATING WELL. GTUBE FEEDING CONTINUOUS @ 70CC/HR. DURHAM CATHETER INTACT AND FLOWING WELL. SAFETY MEASURES INTACT WITH BED LOW AND LOCKED. SIDERAIL UP. WILL CONTINUE TO MONITOR.
[2022-02-25 20:00] VITALS: BP 122/68
--- NOTE | 2022-02-25 20:09 | NUR ---
RN OPENING NOTES: RECEIVED PATIENT SLEEP IN BED COMFORTABLY, BED IN LOW POSITION CALL LIGHTS WITHIN REACH, NO COMPLAIN OF PAIN AND DISCOMFORT AT THIS TIME ON O2 INHALATION SATURATING WELL, PATIENT IS NONE VERBAL ON G TUBE FEEDING OF GLUCERNA @70ML/HR INFUSING WELL, PATIENT HAS LEFT HAND #20 WITH ONGOING 1/2 NSS@100ML/HR INFUSING WELL, PATIENT WITH LHAND@20SL, ON DURHAM CATHETER-30CC URINE OUTPUT, PATIENT KEPT CLEAN AND DRY ALL NEEDS MET WILL CONTINUE TO MONITOR.
[2022-02-25 22:00] VITALS: BP 122/68
[2022-02-26] MEDS: ALBUTEROL FS 2.5 MG/0.5 ML VIAL.NEB NEB SCH ×4 (00:01→22:50)
[2022-02-26] MEDS: INSULIN REGULAR, HUMAN 100 UNIT/ML 3 ML VIAL SQ PRN ×5 (00:12→23:23)
[2022-02-26] MEDS: BLOOD SUGAR DIAGNOSTIC 1 EACH STRIP IN SCH ×5 (00:46→23:35)
--- NOTE | 2022-02-26 00:47 | NUR ---
RN NOTES: BLOOD SUGAR-278/ 9 UNITS REG INSULIN GIVEN PER SLIDING SCALE/
[2022-02-26] MEDS: GLUCERNA 1.2 1,000 ML BOTTLE NG PRN (01:44)
--- NOTE | 2022-02-26 04:17 | NUR ---
Pt recvd on 2 lpm NC. Neb tx and CPT given and prince well. No SOB or respiratory distress noted at this time. SpO2 >92% maintained.
--- NOTE | 2022-02-26 06:00 | NUR ---
RN NOTES: BLOOD SUGAR 265/ 9 UNITS INSULIN GIVEN PER SLIDING SCALE
[2022-02-26 06:58] LABS: CALCIUM, SERUM 8.2 mg/dL (8.5-10.1); CARBON DIOXIDE 25 mmol/L (21-32); CHLORIDE 116 mmol/L (98-107); GLUCOSE 322 mg/dL (74-106); MAGNESIUM 2.2 mg/dL (1.8-2.4); POTASSIUM 3.9 mmol/L (3.5-5.1); SODIUM SERUM 151 mmol/L (136-145); UREA NITROGEN, BLOOD 64 mg/dL (7-18)
--- NOTE | 2022-02-26 07:00 | NUR ---
MS RN CLOSING NOTES: PATIENT SLEEP IN BED COMFORTABLY, AROUSABLE TO TACTILE STIMULI, BED IN LOW POSITION CALL LIGHTS WITHIN REACH, NO COMPLAIN OF PAIN NO FACIAL GRIMACING OBSERVED, PATIENT ON O2 INHALATION AT 2LPM SATURATING AT 98-99 PERCENT ON G TUBE FEEDING OF GLUCERNA 1.2@70ML/HR INFUSING WELL, PATIENT ON DURHAM CATHETER WITH 1200CC URINE OUTPUT, KEPT CLEAN AND DRY ALL NEEDS MET ENDORSE TO INCOMING SHIFT,
[2022-02-26] MEDS: IV 1/2NS 1000 ML 1,000 ML IV SCH (07:01)
[2022-02-26 07:20] LABS: BASOPHILS # (AUTO) 0.1 K/uL (0.0-0.2); BASOPHILS % (AUTO) 0.4 % (0.0-2.0); EOSINOPHILS % (AUTO) 0.2 % (0.0-6.0); HEMATOCRIT 43 % (39-51); HEMOGLOBIN 13.4 g/dL (13.5-17.5); LYMPHOCYTES % (AUTO) 8.4 % (20.0-44.0); MEAN CORPUSCULAR HGB CONC 31 g/dl (31.0-36.0); MEAN CORPUSCULAR VOLUME 89 fL (80-96); MONOCYTES # (AUTO) 0.6 K/uL (0.1-1.30); NEUTROPHILS # (AUTO) 10.6 K/uL (1.8-8.9); PLATELET COUNT (AUTO) 158 K/uL (150-450); RED BLOOD CELL COUNT(AUTO) 4.87 MIL/uL (4.5-6.0); WHITE BLOOD COUNT (AUTO) 12.3 K/uL (4.3-11.0)
[2022-02-26 08:00] VITALS: BP 131/78
[2022-02-26 08:25] LABS: BILIRUBIN,TOTAL 0.2 mg/dL (0.2-1.0)
[2022-02-26 08:26] LABS: ALANINE AMINOTRANSFERASE 99 U/L (12-78); ALBUMIN 1.8 g/dL (3.4-5.0); ALKALINE PHOSPHATASE 58 U/L (46-116); ASPARTATE AMINOTRANSFERASE 46 U/L (15-37); TOTAL PROTEIN, SERUM 6.3 g/dL (6.4-8.2)
[2022-02-26] MEDS: CEFEPIME 2 GM in IV D5W 100 ML IV SCH ×2 (08:48→20:01)
[2022-02-26] MEDS ORDERED: IV 1/2NS 1000 ML 1,000 ML IV PRN (08:57)
[2022-02-26] MEDS: INSULIN GLARGINE, 100 UNIT/ML CARTRIDGE SQ SCH (09:46)
[2022-02-26] MEDS: APIXABAN 2.5 MG TABLET PO SCH ×2 (09:47→17:32)
[2022-02-26] MEDS: VANCOMYCIN 1 GM in IV D5W 250 ML IV SCH (09:49)
[2022-02-26] MEDS ORDERED: NEUTRA PHOS 1 POWD.PACKET NG ONE (10:00)
[2022-02-26] MEDS: ACETAMINOPHEN 650 MG/20.3 ML UDC GT SCH (10:23)
[2022-02-26] MEDS: DOCUSATE SODIUM LIQ 100 MG/10 ML UDC NG SCH (10:23)
[2022-02-26] MEDS: ASCORBIC ACID 500 MG TABLET GT SCH (10:25)
[2022-02-26] MEDS: METOPROLOL TARTRATE 50 MG TABLET PO SCH ×2 (10:25→20:18)
[2022-02-26] MEDS: ALLOPURINOL 100 MG TABLET GT SCH (10:25)
[2022-02-26] MEDS: Z GUARD REMEDY 4 OZ OINT TP SCH (10:26)
[2022-02-26] MEDS ORDERED: DEXTROSE 50%-WATER 50 ML DISP.SYRIN IV PRN (11:00)
[2022-02-26] MEDS ORDERED: IV D5W 1,000 ML IV PRN (11:00)
[2022-02-26 16:00] VITALS: BP 121/78
[2022-02-26] MEDS ORDERED: INSULIN GLARGINE, 100 UNIT/ML CARTRIDGE SQ SCH (17:00)
--- NOTE | 2022-02-26 18:43 | NUR ---
RN CLOSING NOTE PATIENT REMAINS NON VERBAL. CONTINUES ON SUPPLEMENTAL OXYGEN @ 2L VIA NASAL CANULA. TOLERATING WELL. NO S/SX OF PAIN OR RESPIRATORY DISTRESS. ALL MEDS AND INTAKE GIVEN VIA G-TUBE. BLOOD SUGAR LEVELS ELEVATED ON SHIFT, RECEIVED COVERAGE FOR BOTH. 1200 =384/20UNITS 1700= 283/12UNITS. PATIENT RECEIVING CONTINUOUS IV FLUIDS, D5 @ 80ML/HR. TOLERATING WELL. GTUBE FEEDING CONTINUOUS @ 70CC/HR. DURHAM CATHETER INTACT AND FLOWING WELL WITH OUTPUT OF 1200CC CLEAR, YELLOW URINE. IV ACCESS TO LAC AND L-HAND BOTH INTACT AND PATENT. CONTINUES ON IV ABX THERAPY. TOLERATED WELL, NO S/SX OF ADVERSE REACTION. SAFETY MEASURES INTACT WITH BED LOW AND LOCKED. SIDERAIL UP. WILL CONTINUE TO MONITOR.
--- NOTE | 2022-02-26 19:49 | NUR ---
RN OPENING NOTES: RECEIVED PATIENT IN BED WITH EYES CLOSED BUT EASY TO AROUSED,NO SIGN OF PAIN AND DISCOMFORT AT THIS TIME,ON 2L O2 VIA NC SAMUEL WELL,PATIENT IS NONE VERBAL ON G TUBE FEEDING OF GLUCERNA @70ML/HR INFUSING WELL,IV ACCESS LAC 20G SL AND LEFT HAND #20G WITH ONGOING D5 @80ML/HR,ON DURHAM CATHETER PATENT AND INTACT,SAFETY MEASURED INPLACE,CALL LIGHT WITHIN REACH,WILL CONTINUE TO MONITOR.
[2022-02-26 20:00] VITALS: BP 126/70
[2022-02-27] MEDS: INSULIN REGULAR, HUMAN 100 UNIT/ML 3 ML VIAL SQ PRN ×3 (06:19→17:20)
[2022-02-27] MEDS: BLOOD SUGAR DIAGNOSTIC 1 EACH STRIP IN SCH ×3 (06:22→17:17)
--- NOTE | 2022-02-27 06:28 | NUR ---
RN CLOSING NOTES: PATIENT IN BED WITH EYES CLOSED BUT EASY TO AROUSED,PT NON VERBAL,ON 2L O2 VIA NC SAMUEL WELL, NO SIGN SOB/DISTRESS NOTED, ON G TUBE FEEDING OF GLUCERNA @70ML/HR SAMUEL WELL,NO RESIDUAL NOTED,DUE MEDS GIVEN ORDERD,ALL NEEDS ATTENDED,KEPT HOB ELEVATED AT ALL TIMES.IV ACCESS LAC 20G SL AND LEFT HAND #20G WITH ONGOING D5 @85ML/HR,ON DURHAM CATHETER PATENT AND INTACT DRAINING NORM URINE OUTPUT 900ML.,SAFETY MEASURED INPLACE,CALL LIGHT WITHIN REACH,WILL ENDORSED TO NEXT SHIFT.
[2022-02-27 06:32] LABS: BASOPHILS % (AUTO) 0.3 % (0.0-2.0); EOSINOPHILS % (AUTO) 3.3 % (0.0-6.0); HEMATOCRIT 38 % (39-51); HEMOGLOBIN 11.8 g/dL (13.5-17.5); LYMPHOCYTES # (AUTO) 0.9 K/uL (0.8-4.8); LYMPHOCYTES % (AUTO) 9.5 % (20.0-44.0); MEAN CORPUSCULAR HGB CONC 32 g/dl (31.0-36.0); MEAN CORPUSCULAR VOLUME 88 fL (80-96); MONOCYTES # (AUTO) 0.5 K/uL (0.1-1.30); MONOCYTES % (AUTO) 5.5 % (2.0-12.0); NEUTROPHILS # (AUTO) 7.4 K/uL (1.8-8.9); NEUTROPHILS % (AUTO) 81.4 % (43.0-81.0); PLATELET COUNT (AUTO) 148 K/uL (150-450); RED BLOOD CELL COUNT(AUTO) 4.27 MIL/uL (4.5-6.0); WHITE BLOOD COUNT (AUTO) 9.1 K/uL (4.3-11.0)
[2022-02-27 07:06] LABS: CALCIUM, SERUM 8.3 mg/dL (8.5-10.1); CARBON DIOXIDE 28 mmol/L (21-32); CHLORIDE 118 mmol/L (98-107); CREATININE 1.7 mg/dL (0.6-1.3); GLUCOSE 241 mg/dL (74-106); POTASSIUM 3.6 mmol/L (3.5-5.1); SODIUM SERUM 153 mmol/L (136-145); UREA NITROGEN, BLOOD 59 mg/dL (7-18)
--- NOTE | 2022-02-27 07:27 | NUR ---
RN OPENING NOTES: RECEIVED PATIENT IN BED, OBTUNDED. NON-VERBAL. NO S/SX OF PAIN AND DISCOMFORT AT THIS TIME. REMAINS ON O2 INHALATION @2LPM VIA N/C, SATURATING WELL @100%. ON G TUBE FEEDING OF GLUCERNA 1.2 @70ML/HR TOLERATING WELL. NOTED WITH LEFT HAND #20, SL AND LEFT AC #20G WITH ONGOING D5W @80 ML/HR INFUSING WELL. WITH DURHAM CATHETER INTACT DRAINING NORM COLORED URINE VIA GRAVITY. SAFETY MEASURE IN PLACE. BED IN LOWEST AND LOCKED POSITION, CALL LIGHTS WITHIN REACH, SIDE RAILS UP X2, WILL CONTINUE TO MONITOR PATIENT.
[2022-02-27 08:00] VITALS: BP 138/77
[2022-02-27] MEDS: ALBUTEROL FS 2.5 MG/0.5 ML VIAL.NEB NEB SCH ×3 (08:14→23:04)
[2022-02-27] MEDS: CEFEPIME 2 GM in IV D5W 100 ML IV SCH (08:17)
[2022-02-27] MEDS: ALLOPURINOL 100 MG TABLET GT SCH (09:11)
[2022-02-27] MEDS: ACETAMINOPHEN 650 MG/20.3 ML UDC GT SCH (09:11)
[2022-02-27] MEDS: ASCORBIC ACID 500 MG TABLET GT SCH (09:11)
[2022-02-27] MEDS: METOPROLOL TARTRATE 50 MG TABLET PO SCH ×2 (09:11→21:17)
[2022-02-27] MEDS: DOCUSATE SODIUM LIQ 100 MG/10 ML UDC NG SCH (09:11)
[2022-02-27] MEDS: APIXABAN 2.5 MG TABLET PO SCH ×2 (09:12→16:56)
[2022-02-27] MEDS: INSULIN GLARGINE, 100 UNIT/ML CARTRIDGE SQ SCH ×2 (09:16→16:57)
[2022-02-27] MEDS: VANCOMYCIN 1 GM in IV D5W 250 ML IV SCH (09:23)
[2022-02-27] MEDS: POTASSIUM PHOSPHATE MM 7.5 MMOL in IV NS 0.9% 100 ML IV SCH ×2 (09:38→12:54)
[2022-02-27] MEDS: Z GUARD REMEDY 4 OZ OINT TP SCH (09:43)
[2022-02-27] MEDS: MEROPENEM 1 G in IV NS 0.9% 100 ML IV SCH (13:00)
[2022-02-27] MEDS: GLUCERNA 1.2 1,000 ML BOTTLE NG PRN (15:59)
[2022-02-27 16:00] VITALS: BP 136/87
--- NOTE | 2022-02-27 18:58 | NUR ---
RN CLOSING NOTES PATIENT IN BED SLEEPING, REMAINS OBTUNDED. PT IS NONVERBAL, ON 2L O2 VIA NC, TOLERATING WELL. NO SIGNS OF RESP. DISTRESS OR SOB. PT ON G TUBE FEEDING OF GLUCERNA AT 70ML/HR, TOLERATING WELL, WITH NO RESIDUAL NOTED. MEDS GIVEN ORDERED. HOB ELEVATED AT ALL TIMES. IV ACCESS ON LAC 20G SL AND LEFT HAND WITH 20G SL. PT HAS DURHAM CATH WHICH IS INTACT AND PATENT, DRAINING NORM COLORED URINE, OUTPUT OF ABOUT 1100ML. SAFETY MEASURES IN PLACE: BED AT LOWEST POSITION, SIDE RAILS UP X2, CALL LIGHT WITHIN REACH. NEEDS MET AT THIS TIME, WILL ENDORSE TO ONCOMING NURSE.
--- NOTE | 2022-02-27 19:45 | NUR ---
MS RN OPENING NOTES: RECEIVED PATIENT SLEEP IN BED COMFORTABLY, BED IN LOW POSITION CALL LIGHTS WITHIN REACH, NO COMPLAIN OF PAIN AND DISCOMFORT AT THIS TIME ON O2 INHALATION AT 2LPM SATURATING WELL, PATIENT IS NONE VERBAL, OBTUNDED, NPO ON G TUBE FEEDING OF GLUCERNA 1.2270ML/HR INFUSING WELL, ON DURHAM CATHETER-50CC URINE OUTPUT, WITH IV LINE AT LEFT HAND#20 AND LAC#20SL. PATIENT KEPT CLEAN AND DRY ALL NEEDS MET WILL CONTINUE TO MONITOR.
[2022-02-27 20:00] VITALS: BP_SYST 116; BP_SYST 118; BP_DIAS 58
[2022-02-28] MEDS: BLOOD SUGAR DIAGNOSTIC 1 EACH STRIP IN SCH ×4 (00:06→17:52)
[2022-02-28] MEDS: INSULIN REGULAR, HUMAN 100 UNIT/ML 3 ML VIAL SQ PRN ×4 (00:06→17:24)
--- NOTE | 2022-02-28 00:06 | NUR ---
RN NOTES: BLOOD SUGAR-157/2 UNITS GIVEN PER SLIDING SCALE
[2022-02-28] MEDS: MEROPENEM 1 G in IV NS 0.9% 100 ML IV SCH ×2 (01:25→12:56)
[2022-02-28 06:55] LABS: BASOPHILS % (AUTO) 0.2 % (0.0-2.0); EOSINOPHILS % (AUTO) 4.3 % (0.0-6.0); HEMATOCRIT 38 % (39-51); LYMPHOCYTES % (AUTO) 8.6 % (20.0-44.0); MEAN CORPUSCULAR HGB CONC 32 g/dl (31.0-36.0); MEAN CORPUSCULAR VOLUME 89 fL (80-96); MONOCYTES # (AUTO) 0.7 K/uL (0.1-1.30); MONOCYTES % (AUTO) 6.5 % (2.0-12.0); NEUTROPHILS % (AUTO) 80.4 % (43.0-81.0); PLATELET COUNT (AUTO) 166 K/uL (150-450); RED BLOOD CELL COUNT(AUTO) 4.28 MIL/uL (4.5-6.0); WHITE BLOOD COUNT (AUTO) 11.1 K/uL (4.3-11.0)
--- NOTE | 2022-02-28 07:04 | NUR ---
SABI NOTES: BLOOD SUGAR -*106/ NO INSULIN GIVEN PER SLIDING SCALE Addendum: 02/28/22 at 0707 by JAIR WRIGHT RN WRONG POSTING
--- NOTE | 2022-02-28 07:08 | NUR ---
RN NOTES: BLOOD SUGAR 209/ 8 UNITS INSULIN GIVEN PER SLIDING SCALE
[2022-02-28 07:11] LABS: CALCIUM, SERUM 8.5 mg/dL (8.5-10.1); CARBON DIOXIDE 28 mmol/L (21-32); CHLORIDE 118 mmol/L (98-107); CREATININE 1.6 mg/dL (0.6-1.3); GLUCOSE 232 mg/dL (74-106); POTASSIUM 3.9 mmol/L (3.5-5.1); SODIUM SERUM 155 mmol/L (136-145); UREA NITROGEN, BLOOD 54 mg/dL (7-18)
--- NOTE | 2022-02-28 07:30 | NUR ---
RN OPENING NOTES RECEIVED PATIENT ASLEEP IN BED, AROUSABLE TO TACTILE STIMULI. NO SIGNS OF ACUTE RESPIRATORY DISTRESS NOTED. REMAINS ON O2 @ 2LPM VIA N/C, SPO2 @ 100%. NO SOB NOTED. WITH IV ACCESS ON LEFT HAND #20G AND LEFT AC #20G, SALINE LOCKED, INTACT AND PATENT, FLUSHES WELL. WITH G-TUBE INTACT AND PATENT, POSITIVE PLACEMENT, NO RESIDUAL NOTED. WITH GTF OF GLUCERNA 1.2 @70 ML/HR RUNNING, TOLERATING WELL. HOB ELEVATED AT ALL TIMES. WITH F/C INTACT, DRAINING NORM COLORED URINE. ASPIRATION AND SAFETY PRECAUTIONS IN PLACE. BED IN LOWEST AND LOCKED POSITION, SIDE RAILS UP X2, CALL LIGHT PLACED WITHIN EASY REACH, WILL CONTINUE TO MONITOR PATIENT.
--- NOTE | 2022-02-28 07:47 | NUR ---
MS RN CLOSING NOTES: RECEIVED PATIENT SLEEP IN BED, AROUSABLE TO TACTILE STIMULI, BED IN LOW POSITION CALL LIGHTS WITHIN REACH, NO COMPLAIN OF PAIN AND DISCOMFORT AT THIS TIME, ON 02 INHALATION AT 2LPM SATURATING WELL, ON GTUBE FEEDING AT GLUCERNA 1.2@70ML/HR INFUSING WELL, ON ROUTINE BREATHING TREATMENT, SUCTION NEEDED, PATIENT KEPT CLEAN AND DRY ALL NEEDS MET ENDORSE TO INCOMING SHIFT,
[2022-02-28 08:00] VITALS: BP 138/74
[2022-02-28] MEDS: ALBUTEROL FS 2.5 MG/0.5 ML VIAL.NEB NEB SCH ×3 (08:08→23:50)
[2022-02-28] MEDS: ASCORBIC ACID 500 MG TABLET GT SCH (08:51)
[2022-02-28] MEDS: DOCUSATE SODIUM LIQ 100 MG/10 ML UDC NG SCH (08:53)
[2022-02-28] MEDS: APIXABAN 2.5 MG TABLET PO SCH ×2 (08:53→17:02)
[2022-02-28] MEDS: ALLOPURINOL 100 MG TABLET GT SCH (08:53)
[2022-02-28] MEDS: METOPROLOL TARTRATE 50 MG TABLET PO SCH ×2 (08:53→21:10)
[2022-02-28] MEDS: ACETAMINOPHEN 650 MG/20.3 ML UDC GT SCH (08:53)
[2022-02-28] MEDS: VANCOMYCIN 1 GM in IV D5W 250 ML IV SCH (08:54)
[2022-02-28] MEDS: INSULIN GLARGINE, 100 UNIT/ML CARTRIDGE SQ SCH ×2 (08:56→17:40)
[2022-02-28] MEDS: Z GUARD REMEDY 4 OZ OINT TP PRN (08:58)
[2022-02-28] MEDS: Z GUARD REMEDY 4 OZ OINT TP SCH (08:59)
[2022-02-28] MEDS: GLUCERNA 1.2 1,000 ML BOTTLE NG PRN (13:13)
[2022-02-28 16:00] VITALS: BP 124/72
[2022-02-28] MEDS: IV D5W 1,000 ML IV SCH (16:28)
--- NOTE | 2022-02-28 19:04 | NUR ---
MS RN CLOSING NOTE PATIENT NOT ALERT, NON VERBAL. ON OXYGEN @ 2L VIA NASAL CANULA. NO RESPIRATORY DISTRESS NOTED. NO S/SX OF PAIN OR DISCOMFORT SEEN AT THIS TIME. ALL MEDS AND INTAKE GIVEN VIA G-TUBE. PATIENT RECEIVING CONTINUOUS IV FLUIDS, D5 @ 60ML/HR. GTUBE FEEDING CONTINUOUS @ 70CC/HR. DURHAM CATHETER PATENT, AND DRAINING CLEAR, YELLOW URINE, WITH NO ODOR. IV ACCESS TO LAC AND L-HAND BOTH INTACT AND PATENT. CONTINUES ON IV ABX THERAPY. SAFETY MEASURES IN PLACE: BED LOCKED, AND IN LOW POSITION. SIDERAILS UP. WILL ENDORSE PT'S CARE TO ONCOMING NURSE.
--- NOTE | 2022-02-28 19:30 | NUR ---
MS RN OPENING NOTES RECEIVED PT SLEEPING IN BED. NOT ALERT AND NON-VERBAL. HAS O2 AT 2 LPM VIA NASAL CANULA. NOT IN APPARENT DISTRESS. NO PAIN OR DISCOMFORT NOTED. HAS G-TUBE FEEDING OF GLUCERNA RUNNING AT 70 ML/HR. HAS LEFT HAND AND LEFT ANTECUBITAL IV ACCESS #20G WITH D5W RUNNING AT 60 ML/HR. NO S/S OF INFILTRATION NOTED. HAS DURHAM CATHETER DRAINING CLEAR YELLOW URINE TO BAG VIA GRAVITY. SAFETY MEASURES IN PLACE: BED IN LOWEST POSITION AND LOCKED. ALARM ON, CALL LIGHT WITHIN REACH. WILL CONTINUE POC.
[2022-02-28 20:00] VITALS: BP 143/79
[2022-03-01] VITALS: BP 143/77
[2022-03-01] MEDS: BLOOD SUGAR DIAGNOSTIC 1 EACH STRIP IN SCH ×4 (00:26→17:25)
[2022-03-01] MEDS: MEROPENEM 1 G in IV NS 0.9% 100 ML IV SCH ×3 (00:27→21:49)
[2022-03-01] MEDS: INSULIN REGULAR, HUMAN 100 UNIT/ML 3 ML VIAL SQ PRN ×4 (00:30→18:09)
[2022-03-01 04:00] VITALS: BP 123/68
[2022-03-01] MEDS: GLUCERNA 1.2 1,000 ML BOTTLE NG PRN (05:58)
[2022-03-01 06:18] LABS: BASOPHILS # (AUTO) 0.1 K/uL (0.0-0.2); BASOPHILS % (AUTO) 0.6 % (0.0-2.0); EOSINOPHILS % (AUTO) 10.8 % (0.0-6.0); HEMATOCRIT 35 % (39-51); HEMOGLOBIN 11.1 g/dL (13.5-17.5); LYMPHOCYTES % (AUTO) 7.9 % (20.0-44.0); MEAN CORPUSCULAR HGB CONC 32 g/dl (31.0-36.0); MEAN CORPUSCULAR VOLUME 88 fL (80-96); MONOCYTES # (AUTO) 0.8 K/uL (0.1-1.30); MONOCYTES % (AUTO) 6.9 % (2.0-12.0); NEUTROPHILS # (AUTO) 8.8 K/uL (1.8-8.9); NEUTROPHILS % (AUTO) 73.8 % (43.0-81.0); PLATELET COUNT (AUTO) 205 K/uL (150-450); RED BLOOD CELL COUNT(AUTO) 3.94 MIL/uL (4.5-6.0)
[2022-03-01 06:43] LABS: CALCIUM, SERUM 8.4 mg/dL (8.5-10.1); CREATININE 1.3 mg/dL (0.6-1.3); POTASSIUM 3.5 mmol/L (3.5-5.1)
--- NOTE | 2022-03-01 07:12 | NUR ---
MS RN CLOSING NOTES PT LYING IN BED ASLEEP. OBTUNDED, RESPONSIVE TO TOUCH AND LIGHT PAIN. HAS O2 AT 2 LPM VIA NASAL CANULA. BREATHING EVEN AND NON-LABORED. NO ACUTE DISTRESS NOTED. WARM TO TOUCH BUT AFEBRILE. HAS G-TUBE FEEDING OF GLUCERNA RUNNING AT 70 ML/HR. NO RESIDUAL NOTED. HAS LEFT HAND AND LEFT ANTECUBITAL IV ACCESS #20G WITH D5W RUNNING AT 60 ML/HR. INTACT PATENT AND FLUSHING. HAS DURHAM CATHETER DRAINING CLEAR YELLOW URINE TO BAG VIA GRAVITY. 700 ML OUTPUT. ALL DUE MEDS GIVEN AND NEEDS ATTENDED. SAFETY MEASURES MAINTAINED: BED IN LOWEST POSITION AND LOCKED, ALARM ON, CALL LIGHT WITHIN REACH. WILL ENDORSE TO AM SHIFT.
--- NOTE | 2022-03-01 07:30 | NUR ---
RN OPENING NOTES RECEIVED PATIENT ASLEEP IN BED, AROUSABLE TO TACTILE STIMULI. NO SIGNS OF ACUTE RESPIRATORY DISTRESS NOTED. REMAINS ON O2 @ 2LPM VIA N/C. NO SOB NOTED. WITH IV ACCESS ON LEFT HAND #20G, SL AND LEFT AC #20G, WITH D5W@60ML/HR RUNNING. WITH G-TUBE INTACT AND PATENT, POSITIVE PLACEMENT, NO RESIDUAL NOTED. WITH GTF OF GLUCERNA 1.2 @70 ML/HR RUNNING, TOLERATING WELL. HOB ELEVATED AT ALL TIMES. WITH F/C INTACT, DRAINING NORM COLORED URINE. ASPIRATION AND SAFETY PRECAUTIONS IN PLACE. BED IN LOWEST AND LOCKED POSITION, SIDE RAILS UP X2, CALL LIGHT PLACED WITHIN EASY REACH, WILL CONTINUE TO MONITOR PATIENT.
[2022-03-01] MEDS: ALBUTEROL FS 2.5 MG/0.5 ML VIAL.NEB NEB SCH ×3 (07:49→23:44)
[2022-03-01] MEDS: ALLOPURINOL 100 MG TABLET GT SCH (08:21)
[2022-03-01] MEDS: DOCUSATE SODIUM LIQ 100 MG/10 ML UDC NG SCH (08:21)
[2022-03-01] MEDS: ACETAMINOPHEN 650 MG/20.3 ML UDC GT SCH (08:21)
[2022-03-01] MEDS: ASCORBIC ACID 500 MG TABLET GT SCH (08:22)
[2022-03-01] MEDS: METOPROLOL TARTRATE 50 MG TABLET PO SCH ×2 (08:23→21:49)
[2022-03-01] MEDS: APIXABAN 2.5 MG TABLET PO SCH ×2 (08:24→17:25)
[2022-03-01] MEDS: INSULIN GLARGINE, 100 UNIT/ML CARTRIDGE SQ SCH ×2 (08:26→17:25)
[2022-03-01] MEDS: VANCOMYCIN 1 GM in IV D5W 250 ML IV SCH (08:27)
[2022-03-01] MEDS: Z GUARD REMEDY 4 OZ OINT TP SCH (08:27)
[2022-03-01 08:53] VITALS: BP 135/73
[2022-03-01] MEDS: IV D5W 1,000 ML IV SCH (09:10)
[2022-03-01 11:26] LABS: BAND % (MANUAL) 1 % (0.0-5.0); EOSINOPHILS % (MANUAL) 11 % (0-4); LYMPHOCYTES % (MANUAL) 7 % (16-48); MONOCYTES % (MANUAL) 6 % (0-11.0); NEUTROPHILS % (MANUAL) 75 (42-76)
[2022-03-01 16:17] VITALS: BP 116/70
--- NOTE | 2022-03-01 19:16 | NUR ---
RN CLOSING NOTES PATIENT ASLEEP IN BED, AROUSABLE TO TACTILE STIMULI, REMAINS OBTUNDED. NO SIGNS OF ACUTE RESPIRATORY DISTRESS NOTED. REMAINS ON O2 @ 2LPM VIA N/C. NO SOB NOTED. IV ACCESS ON LEFT HAND #20G, SL AND LEFT AC #20G, INTACT AND PATENT. WITH D5W @60ML/HR RUNNING. WITH G-TUBE INTACT AND PATENT, POSITIVE PLACEMENT, NO RESIDUAL NOTED. WITH GTF OF GLUCERNA 1.2 @70 ML/HR RUNNING, TOLERATING WELL. HOB ELEVATED AT ALL TIMES. WITH F/C INTACT, DRAINING NORM COLORED URINE. ASPIRATION AND SAFETY PRECAUTIONS IN PLACE. BED IN LOWEST AND LOCKED POSITION, SIDE RAILS UP X2, CALL LIGHT PLACED WITHIN EASY REACH, WILL ENDORSE TO NEXT SHIFT FOR CONTINUITY OF CARE.
[2022-03-01 20:35] VITALS: BP 115/70
--- NOTE | 2022-03-01 20:50 | NUR ---
RN OPENING NOTES: RECEIVED PATIENT IN BED WITH EYES CLOSED BUT EASY TO AROUSED,ON 2L O2 VIA NC SAMUEL WELL,NO SIGN SOB/DISTRESS NOTED,NO SIGN OF PAIN/DISCOMFORT AT THIS TIME,PATIENT IS NONE VERBAL ON G TUBE FEEDING OF GLUCERNA @70ML/HR INFUSING WELL,IV ACCESS LAC 20G SL AND LEFT HAND #20G WITH ONGOING D5 @60ML/HR,ON DURHAM CATHETER PATENT AND INTACT,SAFETY MEASURED INPLACE,CALL LIGHT WITHIN REACH,WILL CONTINUE TO MONITOR.
[2022-03-02] MEDS: INSULIN REGULAR, HUMAN 100 UNIT/ML 3 ML VIAL SQ PRN ×3 (00:46→12:02)
[2022-03-02] MEDS: BLOOD SUGAR DIAGNOSTIC 1 EACH STRIP IN SCH ×3 (00:50→11:54)
[2022-03-02] MEDS: IV D5W 1,000 ML IV SCH (01:38)
[2022-03-02] MEDS: MEROPENEM 1 G in IV NS 0.9% 100 ML IV SCH ×2 (05:34→12:06)
--- NOTE | 2022-03-02 06:43 | NUR ---
RN OPENING NOTES: PATIENT IN BED WITH EYES CLOSED BUT EASY TO AROUSED,ON 2L O2 VIA NC SAMUEL WELL,NO SIGN SOB/DISTRESS NOTED,NO SIGN OF PAIN/DISCOMFORT DURING SHIFT,DUE MEDS GIVEN ORDER,ALL NEEDS ATTENDED,PATIENT IS NONE VERBAL ON G TUBE FEEDING OF GLUCERNA @70ML/HR INFUSING WELL,IV ACCESS LAC 20G SL AND LEFT HAND #20G WITH ONGOING D5 @60ML/HR,DURHAM CATHETER DRAINING NORM URINE OUTPUT 600ML.SAFETY MEASURED INPLACE,CALL LIGHT WITHIN REACH,WILL ENDORSED TO NEXT SHIFT..
[2022-03-02 06:59] LABS: BASOPHILS % (AUTO) 0.2 % (0.0-2.0); EOSINOPHILS % (AUTO) 12.5 % (0.0-6.0); HEMATOCRIT 32 % (39-51); HEMOGLOBIN 10.4 g/dL (13.5-17.5); LYMPHOCYTES # (AUTO) 0.9 K/uL (0.8-4.8); LYMPHOCYTES % (AUTO) 9.4 % (20.0-44.0); MEAN CORPUSCULAR HGB CONC 32 g/dl (31.0-36.0); MEAN CORPUSCULAR VOLUME 88 fL (80-96); MONOCYTES # (AUTO) 0.7 K/uL (0.1-1.30); MONOCYTES % (AUTO) 7.2 % (2.0-12.0); NEUTROPHILS # (AUTO) 6.8 K/uL (1.8-8.9); NEUTROPHILS % (AUTO) 70.7 % (43.0-81.0); PLATELET COUNT (AUTO) 179 K/uL (150-450); RED BLOOD CELL COUNT(AUTO) 3.65 MIL/uL (4.5-6.0); WHITE BLOOD COUNT (AUTO) 9.6 K/uL (4.3-11.0)
[2022-03-02 07:32] LABS: CALCIUM, SERUM 8.4 mg/dL (8.5-10.1); CREATININE 1.2 mg/dL (0.6-1.3); POTASSIUM 3.3 mmol/L (3.5-5.1)
--- NOTE | 2022-03-02 07:35 | NUR ---
MS RN OPENING NOTES: RECEIVED LYING IN BED WITH EYES CLOSED, NOT RESPONSIVE TO VERBAL AND TACTILE STIMULI, ON 2L O2 VIA NC TOLERATING WELL AT 97%, NO S/SX OF SOB/DISTRESS NOTED,NO SIGNS OF NONVERBAL CUES FOR PAIN/DISCOMFORT, PATIENT IS NOTED WITH BRUXISM. ON G TUBE FEEDING OF GLUCERNA @70ML/HR INFUSING WELL, IV ACCESSES ON LAC G#20 SL AND LH G#20 WITH ONGOING D5W @60ML/HR. DURHAM CATHETER DRAINING DARK YELLOW URINE OUTPUT ABOUT 200 ML WHEN RECEIVED. SAFETY MEASURES IN PLACE, SIDE RAILS UP 2X, CALL LIGHT WITHIN REACH WELL TRAY TABLE. WILL CONTINUE TO MONITOR DURING MY SHIFT.
[2022-03-02] MEDS: ALBUTEROL FS 2.5 MG/0.5 ML VIAL.NEB NEB SCH ×2 (07:44→16:28)
[2022-03-02 08:00] VITALS: BP 119/72
[2022-03-02] MEDS ORDERED: IV D5W 1,000 ML IV PRN (08:17)
[2022-03-02] MEDS ORDERED: POTASSIUM CHLORIDE 20 MEQ POWDER PACKET GT SCH (09:00)
[2022-03-02] MEDS: ALLOPURINOL 100 MG TABLET GT SCH (09:09)
[2022-03-02] MEDS: DOCUSATE SODIUM LIQ 100 MG/10 ML UDC NG SCH (09:09)
[2022-03-02] MEDS: ASCORBIC ACID 500 MG TABLET GT SCH (09:10)
[2022-03-02] MEDS: METOPROLOL TARTRATE 50 MG TABLET PO SCH (09:10)
[2022-03-02] MEDS: APIXABAN 2.5 MG TABLET PO SCH (09:13)
[2022-03-02] MEDS: ACETAMINOPHEN 650 MG/20.3 ML UDC GT SCH (09:13)
[2022-03-02] MEDS: INSULIN GLARGINE, 100 UNIT/ML CARTRIDGE SQ SCH (09:16)
[2022-03-02] MEDS: VANCOMYCIN 1 GM in IV D5W 250 ML IV SCH (09:18)
[2022-03-02] MEDS: Z GUARD REMEDY 4 OZ OINT TP PRN (09:32)
[2022-03-02] MEDS: Z GUARD REMEDY 4 OZ OINT TP SCH (09:33)
[2022-03-02 16:00] VITALS: BP 125/63
--- NOTE | 2022-03-02 17:30 | NUR ---
MS CAP LINING MACHINE OPERATOR NOTE PT DISCHARGED TO [facility] IN STABLE CONDITION. PATIENT IS AOX1, OBTUNDED, NON-VERBAL, BED BOUND. WAS ON 2LPM BUT TRIED TO REMOVED FROM O2 AND STILL TOLERATING WELL WITH SPO2 AT 98%. NO SOB NOTED. NOT IN ANY SIGN OF RESPIRATORY DISTRESS. NO BELONGINGS ACCOUNTED FOR. DISCHARGE INSTRUCTIONS WERE GIVEN TO SABI RDZ AND SHE ACKNOWLEDGED NEW ORDERS. IV ACCESSES IN PLACE L HAND AND LAC BOTH G#20. PT LEFT THE UNIT AT 1715 VIA GURNEY ACCOMPANIED BY 2 PACKER AND CARRY OUT.
== END 2022-03-02 17:35 | DRG 871 ==
LOC: ER 06:29 → TRANSITION 08:40 → MED 10:20
PROVIDERS: ADMIT Internal Medicine; ATTEND Internal Medicine
DX: A41.1 Sepsis due to other specified staphylococcus (principal); E43 Unspecified severe protein-calorie malnutrition; G92.8 Other toxic encephalopathy; J69.0 Pneumonitis due to inhalation of food and vomit; N17.0 Acute kidney failure with tubular necrosis; J96.21 Acute and chronic respiratory failure with hypoxia; R53.2 Functional quadriplegia; I21.A1 Myocardial infarction type 2; E87.0 Hyperosmolality and hypernatremia; E87.2 Acidosis; J70.1 Chronic and other pulmonary manifestations due to radiation; E87.1 Hypo-osmolality and hyponatremia; Z16.12 Extended spectrum beta lactamase (ESBL) resistance; Z16.24 Resistance to multiple antibiotics; E11.65 Type 2 diabetes mellitus with hyperglycemia; Z79.899 Other long term (current) drug therapy; Z86.73 Personal history of transient ischemic attack (TIA), and cerebral infarction without residual deficits; I11.0 Hypertensive heart disease with heart failure; I50.9 Heart failure, unspecified; E87.6 Hypokalemia; E78.5 Hyperlipidemia, unspecified; Z51.5 Encounter for palliative care; Z66 Do not resuscitate; Z79.01 Long term (current) use of anticoagulants; Z74.01 Bed confinement status; Z93.1 Gastrostomy status; Z85.118 Personal history of other malignant neoplasm of bronchus and lung; Z92.3 Personal history of irradiation; Z92.21 Personal history of antineoplastic chemotherapy; N40.0 Benign prostatic hyperplasia without lower urinary tract symptoms; Z88.2 Allergy status to sulfonamides; Z88.6 Allergy status to analgesic agent; Z91.041 Radiographic dye allergy status; Z79.51 Long term (current) use of inhaled steroids; Z79.4 Long term (current) use of insulin; R13.10 Dysphagia, unspecified; F32.A Depression, unspecified; E86.1 Hypovolemia; F01.50 Vascular dementia, unspecified severity, without behavioral disturbance, psychotic disturbance, mood disturbance, and anxiety; E88.09 Other disorders of plasma-protein metabolism, not elsewhere classified; D63.8 Anemia in other chronic diseases classified elsewhere; E86.0 Dehydration; Z86.718 Personal history of other venous thrombosis and embolism; Z86.16 Personal history of COVID-19; N32.81 Overactive bladder; N40.1 Benign prostatic hyperplasia with lower urinary tract symptoms; M24.561 Contracture, right knee; M24.562 Contracture, left knee; L89.626 Pressure-induced deep tissue damage of left heel; L89.616 Pressure-induced deep tissue damage of right heel; L89.896 Pressure-induced deep tissue damage of other site; M62.50 Muscle wasting and atrophy, not elsewhere classified, unspecified site; I70.0 Atherosclerosis of aorta; B95.7 Other staphylococcus as the cause of diseases classified elsewhere; Z74.09 Other reduced mobility
CPT/HCPCS: 31720; 36415; 71045-TC; 76604-TC; 76770-TC; 80048-TC; 80053-TC; 80076-TC; 80202-TC; 81001; 82570-TC; 82962-TC; 83605-TC; 83735-TC; 84100-TC; 84300-TC; 84443-TC; 84484-TC; 85025-TC; 85730-TC; 87040-TC; 87070-TC; 87081-TC; 87086-TC; 87186-TC; 93970-TC; 94668-TC; 94799-TC; A6253; G0378; J0692; J1650; J1815; J2185; J3370; J3490; J7030; J7042; J7050; J7060; J7070